=== PATIENT | male | born 1955 | race Caucasian/White ===

== ENCOUNTER 2017-01-26 14:21 | Inpatient (IN) | payer BC, OTHER ==
[~2017-01-26] VITALS: Ht 167.6 cm; Wt 65.5 kg
[2017-01-26] VITALS (7 sets, daily range): BP systolic 163–172; BP diastolic 81–87
--- NOTE | 2017-01-26 17:38 | ED ORDER SUMMARY ---
..... Patient: PEGGY GARZON OrderSheet [facility] VisitID: [id number] [place] [address] 61y, M Registration Date/Time: 01/26/2017 ORDER SHEET Weight: 63.5 kg (stated) Allergies: No Known Drug Allergy GENERAL ORDERS: CBC w Diff Urgent (15:14 01/26/2017 Rere Rangel) (Ack 15:27 Stone) (16:01 KPage-Raúln R.N.) CMP Urgent (15:14 01/26/2017 Rere Rangel) (Ack 15:27 Stone) (16:01 KPage-Raúln R.N.) PT with INR Urgent (15:14 01/26/2017 Rere Rangel) (Ack 15:27 Stone) (16:01 KPage-Raúln R.N.) PTT Urgent (15:14 01/26/2017 Rere Rangel) (Ack 15:27 Stone) (16:01 KPage-Guychan R.N.) Type & Screen Urgent (15:14 01/26/2017 Rere Rangel) (Ack 15:27 Stone) (16:01 KPage-Raúln R.N.) Pulse oximeter (15:14 01/26/2017 Rere Rangel) (Ack 15:27 Stone) (16:01 KPage-Raúln R.N.) CT Abd/Pel w Cont (No) (N/A) Urgent (15:41 01/26/2017 Rere Rangel) (Ack 15:43 Stone) (17:07 Brenda) Vitals - Orthostatic (15:42 01/26/2017 Rere Rangel) (16:50 KPage-Guychan R.N.) Type & Cross (anemia) (transfusion) Urgent (16:51 01/26/2017 Rere Rangel) (Ack 17:32 Stone) (18:22 KPage-Kuchan R.N.) Transfuse PRBCs (2 type and crossed units) (16:51 01/26/2017 Rere Rangel) (Ack 17:32 ORernandez) (18:22 Erich R.N.) MEDICATION ORDERS: IV FLUIDS: IV NS : initial bolus 500 mL (1000 mL/hr), then none - for X1 (NOW) (15:14 01/26/2017 Rere Rangel) (16:01 Erich R.N.) Morphine IV 4 mg (HIGH ALERT MEDICATION, NOW) (15:42 01/26/2017 Rere Rangel) (Ack 16:01 Erich R.N.) (16:14 Erich R.N.) Protonix IVP 80mg 80 mg (Mix in NS 20ml over 4min) (16:57 01/26/2017 Rere Rangel) (17:43 Erich R.N.) Fentanyl IV 75 mcg (HIGH ALERT MEDICATION, NOW) (18:08 01/26/2017 Rere Rangel) (Ack 18:09 KAYLAintergermania R.N.) (18:22 Erich R.N.) ORDER SHEET NOTES: [Electronically signed by Gibson Melendez Dr. (10:08 01/27/2017)] [Electronically signed by Shiv Larose R.N. (18:03 01/28/2017)] [Electronically locked/signed by Shiv Larose R.N. (18:03 01/28/2017)]
--- NOTE | 2017-01-26 17:38 | ED NURSING NOTES ---
Clinical Report - Nurses [facility] [address] [place] [address] 01/26/2017 14:23 Patient: PEGGY GARZON TRIAGE Triage time 14:51 Jan 26 2017. Acuity: LEVEL 3. Chief Complaint: ABDOMINAL PAIN and RECTAL BLEEDING (Pt reports rectal prolapse x 2 months, scheduled for colonoscopy on february 06, pt began having rectal bleeding yesterday, pt currently under tx for stage 4 liver cancer pt of Dr Keturah marques cancer here in [place]). Alert. No acute distress. SEPSIS SCREEN: Sepsis Screen. Negative (no infection suspected/documented). --15:00 Shiv Larose R.N. 14:51 01/26/17. BP: 153/84. HR: 76. RR: 17. O2 saturation: 98%. Temp: 98.1 F. Pain level now: 12/04. --15:00 Shiv Larose R.N. Weight: 63.5 kg stated. Height/Length: 66 inches Per Patient. BMI: 22.6. --14:59 Shiv Larose R.N. Medications Gabapentin Oral (Capsule 300 mg), 3x a day. --14:56 Shiv Larose R.N. OxyCODONE HCl Oral. --14:56 Shiv Larose R.N. Stool Softener Oral. --14:56 Shiv Larose R.N. Medication/allergy information source: the patient and patient's spouse. --15:00 Shiv Larose R.N. Allergies No Known Drug Allergy. --14:56 Shiv Larose R.N. History Arrived by private vehicle. Historian: patient. Accompanied by family. Last oral intake by patient was (1200 today). 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 PAST MEDICAL HX: Immunizations: up-to-date. SOCIAL HX: Smoker- current status unknown (cigarette). History of drug use: marijuana. No alcohol use. No infectious disease exposure. No known contact with a sick individual. ABUSE ASSESSMENT: No report of abuse. SELF HARM ASSESSMENT: A self harm assessment was performed. The patient answered "no" to the question "Do you have thoughts of harming or killing yourself?". FALL RISK ASSESSMENT: Fall risk assessment completed. No fall risk identified. NUTRITIONAL RISK ASSESSMENT: The nutritional risk assessment revealed no deficiencies. FUNCTIONAL ASSESSMENT: Functional assessment: no impairments noted. LEARNING NEEDS ASSESSMENT: The learning needs assessment revealed no barriers. SKIN INTEGRITY ASSESSMENT: Skin integrity risk assessment completed. No skin integrity risk identified. --15:00 Shiv Larose R.N. This started yesterday. --15:00 Shiv Larose R.N. PROBLEMS: Chest Pain. Abdominal Pain. Liver Cancer. --14:58 Shiv Larose R.N. ADDITIONAL SURGERIES: Chemo Port placed R anterior chest wall. Hernia Repair. Pancreatic Cancer removed. Shoulder Repair. Splenectomy. Wipple. --14:58 Shiv Larose R.N. Interventions ID band on patient. To treatment room. --15:00 Shiv Larose R.N. PHYSICAL ASSESSMENT Ambulatory to room. Patient gowned. GENERAL / NEURO / PSYCH: Alert. Oriented X 4. Appears in no acute distress. RESPIRATORY: Respirations not labored. Breath sounds within normal limits. GI / : Abdomen soft and nontender. Bowel sounds within normal limits. SKIN: Skin is warm and dry. --15:02 Shiv Larose R.N. NURSING PROGRESS NOTES Pulse oximeter and NIBP monitor placed on patient; relocation specialist- Lead II and V5; monitor alarms on. Patient gowned. Head of bed elevated. Patient identifiers checked. Call light placed in reach. Side rails up x 1. Bed placed in lowest position. Brakes of bed on. Patient waiting for evaluation. --15:03 Shiv Larose R.N. 15:51 01/26/2017 Site #1 started via IV in the right with an 20g angiocath, with aseptic technique and good blood return. Blood drawn: rainbow set. Labeled in the presence of the patient and sent to the lab. Saline lock flushed with 10 mL saline (power port right upper chest). --16:01 Shiv Larose R.N. 16:01 01/26/2017 Started bag #1 1000 mL IV Fluids IV NS (Saline); bolus of 500 mL then at 999 mL/hr via site #1 via IV pump. Allergies verified and confirmed 5 rights. IV patency established. IV site checked: no pain, redness, or swelling. IV flushed thoroughly pre- and post-medication administration. --16:01 Shiv Larose R.N. 16:09 01/26/2017 Morphine IVP 4 mg given. via site #1. Allergies verified, confirmed 5 rights and sedative warning given to the patient. IV patency established. IV site checked: no pain, redness, or swelling. IV flushed thoroughly pre- and post-medication administration. IVP given by RN. --16:14 Shiv Larose R.N. Reassessment after medication administered. He is calm and resting quietly and has had no adverse reaction. ( ivf infusing on pump as ordered, morphine given for pain pt reports improvement in symptoms, waiting lab results-). --16:24 Shiv Larose R.N. 16:23 01/26/17. BP: 150/76. --16:24 Shiv Larose R.N. Critical value relayed to ED by aguila harley. Critical value received by Shiv GIBBONS. Hgb: 5.7. Hct: 17. Critical value read back. Verified lab result. Patient ID band checked for patient name and birthdate. ED physician and charge nurse notifed of critical value (Dr Melendez). --16:36 Shiv Larose R.N. Patient transported to radiology and CT by stretcher with tech. --16:49 Shiv Larose R.N. 17:18 01/26/2017 PROTONIX (Pantoprazole Sodium) IVP 80 mg given. via site #1. Allergies verified and confirmed 5 rights. IV patency established. IV site checked: no pain, redness, or swelling. IV flushed thoroughly pre- and post-medication administration. IVP given by RN. --17:43 Shiv Larose R.N. 18:17 01/26/2017 Fentanyl IVP 75 mcg given. via site #1. Allergies verified, confirmed 5 rights and sedative warning given to the patient and patient's family. IV patency established. IV site checked: no pain, redness, or swelling. IV flushed thoroughly pre- and post-medication administration. IVP given by RN. --18:22 Shiv Larose R.N. 17:50. BLOOD PRODUCT STARTED: consent signed, ID band checked and blood product verified to order and patient's blood band by 2 staff members. #1 PRBC via IV pump (75 mL/hr for 15 minutes). See transfusion record. --18:33 Shiv Larose R.N. DISPOSITION / DISCHARGE Admitted to the Critical Care Unit (18:31 Jan 26 2017). Transported via stretcher by nurse with monitor and IV. Report was given to a nurse via a phone call. Report included patient's care, treatment, medications, reviewed medication reconcilliation, and condition (including any recent changes or anticipated changes). All questions were answered. Report was acknowledged and care was transferred. (Cassi GIBBONS). Patient's personal items include, given to spouse. --18:32 Shiv Larose R.N. 18:30 01/26/17. BP: 176/81. HR: 65. RR: 15. O2 saturation: 96%. Temp: 98 F. Pain level now: 12/04. --18:32 Shiv Larose R.N. Departure time: 1842. --18:39 Shiv Larose R.N. Locked/Released at 01/28/2017 18:03 by Shiv Larose R.N.
--- NOTE | 2017-01-26 17:38 | ED ORDER SUMMARY ---
..... Patient: PEGGY GARZON OrderSheet [facility] VisitID: [id number] [place] [address] 61y, M Registration Date/Time: 01/26/2017 ORDER SHEET Weight: 63.5 kg (stated) Allergies: No Known Drug Allergy GENERAL ORDERS: CBC w Diff Urgent (15:14 01/26/2017 Rere Rangel) (Ack 15:27 Stone) (16:01 KPage-Raúln R.N.) CMP Urgent (15:14 01/26/2017 Rere Rangel) (Ack 15:27 Stone) (16:01 KPage-Raúln R.N.) PT with INR Urgent (15:14 01/26/2017 Rere Rangel) (Ack 15:27 Stone) (16:01 KPage-Raúln R.N.) PTT Urgent (15:14 01/26/2017 Rere Rangel) (Ack 15:27 Stone) (16:01 KPage-Guychan R.N.) Type & Screen Urgent (15:14 01/26/2017 Rere Rangel) (Ack 15:27 Stone) (16:01 KPage-Raúln R.N.) Pulse oximeter (15:14 01/26/2017 Rere Rangel) (Ack 15:27 Stone) (16:01 KPage-Raúln R.N.) CT Abd/Pel w Cont (No) (N/A) Urgent (15:41 01/26/2017 Rere Rangel) (Ack 15:43 Stone) (17:07 Brenda) Vitals - Orthostatic (15:42 01/26/2017 Rere Rangel) (16:50 KPage-Guychan R.N.) Type & Cross (anemia) (transfusion) Urgent (16:51 01/26/2017 Rere Rangel) (Ack 17:32 Stone) (18:22 KPage-Kuchan R.N.) Transfuse PRBCs (2 type and crossed units) (16:51 01/26/2017 Rere Rangel) (Ack 17:32 AKernandez) (18:22 Erich R.N.) MEDICATION ORDERS: IV FLUIDS: IV NS : initial bolus 500 mL (1000 mL/hr), then none - for X1 (NOW) (15:14 01/26/2017 Rere Rangel) (16:01 Erich R.N.) Morphine IV 4 mg (HIGH ALERT MEDICATION, NOW) (15:42 01/26/2017 Rere Rangel) (Ack 16:01 Erich R.N.) (16:14 Erich R.N.) Protonix IVP 80mg 80 mg (Mix in NS 20ml over 4min) (16:57 01/26/2017 Rere Rangel) (17:43 Erich R.N.) Fentanyl IV 75 mcg (HIGH ALERT MEDICATION, NOW) (18:08 01/26/2017 Rere Rangel) (Ack 18:09 KAYLAintergermania R.N.) (18:22 Erich R.N.) ORDER SHEET NOTES: [Electronically signed by Gibson Melendez Dr. (10:08 01/27/2017)] [Electronically signed by Shiv Larose R.N. (18:03 01/28/2017)] [Electronically locked/signed by Shiv Larose R.N. (18:03 01/28/2017)]
--- NOTE | 2017-01-26 17:38 | ED CLINICAL REPORT ---
Clinical Report - Physicians/Mid Levels [facility] [address] [place] [address] 01/26/2017 14:23 Patient: PEGGY GARZON Time Seen: 1514; initial patient contact. Arrived- By private vehicle. Historian- patient. HISTORY OF PRESENT ILLNESS Chief Complaint: RECTAL BLEEDING. This started today, has been severe and is still present. It was abrupt in onset and has been constant but is not gone now. The patient has had rectal bleeding. Similar symptoms previously: Recent medical care: Not recently seen/assessed. REVIEW OF SYSTEMS The patient has had weakness, and he has had dizziness. No fainting episodes, fever, difficulty breathing or chest pain. All systems otherwise negative, except as recorded above. PAST HISTORY See nurses notes. Medications: Stool Softener Oral. OxyCODONE HCl Oral. Gabapentin Oral (Capsule 300 mg), 3x a day. Allergies: No Known Drug Allergy. SOCIAL HISTORY Never smoker. History of occasional drug use: marijuana. No alcohol use. No recent travel. Is a local resident. ADDITIONAL NOTES The nursing notes have been reviewed. PHYSICAL EXAM Vital Signs: 01/26/2017 14:51 BP: 153/84. HR: 76. RR: 17. O2 saturation: 98%. Temp: 98.1 F. Pain level now: 5/10. Hypertensive. Oxygen saturation normal. Appearance: Alert. Oriented X3. No acute distress. Eyes: Pupils equal, round and reactive to light. Pale conjunctivae. Eyes normal inspection. No scleral icterus. ENT: Ears normal. Nose normal. Pharynx normal. Neck: Normal inspection. Neck supple. CVS: Normal heart rate and rhythm. Heart sounds normal. Pulses normal. Respiratory: No respiratory distress. Breath sounds normal. No rales, rhonchi or wheezes. Abdomen: Soft and nontender. Bowel sounds normal. No mass. Rectal: Inflamed external hemorrhoids. No bleeding external hemorrhoids. Strongly heme-positive stool; hemoccult air quality engineer check passed. (POC test reference range: negative). Stool not melenic. Skin: Skin warm and dry. Normal skin color. No rash. Normal skin turgor. Extremities: Extremities exhibit normal ROM. No lower extremity edema. Neuro: Oriented X 3. No motor deficit. No sensory deficit. LABS, X-RAYS, AND EKG Laboratory Tests: CBC w Diff: (MARKY: 01/26/2017 15:56) ( [facility] 01/26/2017 16:38) IP Test Result Flag Units (Reference) WHITE BLOOD COUNT 9.1 K/uL (4.5-11.5) RED BLOOD COUNT 1.95 L M/uL (4.50-5.90) HEMOGLOBIN 5.7 *L gm/dL (13.5-17.5) CRITICAL RESULTS CALLEDCalled to GE R.N. 01/26/17 1636Were 2 patient identifiers used? YWas the result read back? Y HEMATOCRIT 17.0 *L % (41.0-53.0) CRITICAL RESULTS CALLEDCalled to GE R.N. 01/26/17 1636Were 2 patient identifiers used? YWas the result read back? Y MEAN CELL VOLUME 87 fL (80-100) MEAN CORPUSCULAR HGB 29 pg (26-34) MEAN CORPUSCULAR HGB CONC 34 g/dL (31-37) RED CELL DISTRIBUTION WIDTH 23.5 H % (11.6-14.8) PLATELET COUNT 348 K/uL (150-400) PT with INR: (MARKY: 01/26/2017 15:56) ( [facility] 01/26/2017 16:26) Final results Test Result Flag Units (Reference) INR 1.2 (0.8-1.2) Low Intensity Therapy: INR 1.5-2.0 PT range 18.5-23.1Mod.Intensity Therapy: INR 2.0-3.0 PT range 23.1-31.5High Intensity Therapy: INR 2.5-3.5 PT range 27.4-35.5High Intensity Therapy 2: INR 3.0-4.0 PT range 31.5-39.3 APTT 39 H SECONDS (24-34) CMP: (MARKY: 01/26/2017 15:56) ( [facility] 01/26/2017 16:38) Final results Test Result Flag Units (Reference) GLUCOSE 164 H mg/dL (70-110) BUN 16 mg/dL (7-18) CREATININE 1.0 mg/dL (0.6-1.3) Estimated GFR >60 mL/min Estimated GFR- >60 mL/min Note: Persistent reduction over 3 months in eGFR<60 mL/min/1.73 m2 defines CKD. Patients with eGFR values>=60 mL/min/1.73 m2 may also have CKD if evidence ofpersistent proteinuria. Additional information may be foundat www.kidney.org. SODIUM 139 mmol/L (136-145) POTASSIUM 4.1 mmol/L (3.5-5.1) CHLORIDE 107 mmol/L (98-107) CARBON DIOXIDE 24 mmol/L (21-32) CALCIUM 8.1 L mg/dL (8.5-10.1) TOTAL PROTEIN 5.4 L g/dL (6.4-8.2) ALBUMIN 2.6 L g/dL (3.3-5.0) BILIRUBIN, TOTAL 0.6 mg/dL (0.0-1.0) ALKALINE PHOSPHATASE 235 H U/L (46-116) AST (SGOT) 35 U/L (15-37) ALT (SGPT) 30 U/L (12-78) . PROGRESS AND PROCEDURES Course of Care: patient with reported GI bleed. Patient with concern for anemia. Labs ordered. Patient with + heme stool. patient agreeable to treatment and plan. patient with significantly low h/h. informed written consent obtained for transfusion. Discussed case with Dr. Jarquin and oncall hospitalist. patient given protonix and admitted to the ICU. patient with significant blood loss and would need ICU level of care. patient typed and crossed for 2 units. Patient with good BP, HR, and mentation prior to moving upstairs. Discussed with patient his work up in the ED including diagnosis and plan of care. All questions answered. patient expressed understanding and was agreeable. Critical care performed (40 minutes). Time is exclusive of separately billable procedures. Time includes: direct patient care, patient reassessment, coordination of patient care, review of patient's medical records, medical consultation and documentation of patient care. Consult obtained from surgery. Disposition: Admitted to the Critical Care Unit. CLINICAL IMPRESSION Occult and major GI bleed (acute). Severe acute anemia associated with acute blood loss. (Electronically signed by Gibson Melendez Dr. 01/27/2017 10:08)
--- NOTE | 2017-01-26 17:38 | ED NURSING NOTES ---
Clinical Report - Nurses [facility] [address] [place] [address] 01/26/2017 14:23 Patient: PEGGY GARZON TRIAGE Triage time 14:51 Jan 26 2017. Acuity: LEVEL 3. Chief Complaint: ABDOMINAL PAIN and RECTAL BLEEDING (Pt reports rectal prolapse x 2 months, scheduled for colonoscopy on february 06, pt began having rectal bleeding yesterday, pt currently under tx for stage 4 liver cancer pt of Dr Keturah marques cancer here in [place]). Alert. No acute distress. SEPSIS SCREEN: Sepsis Screen. Negative (no infection suspected/documented). --15:00 Shiv Larose R.N. 14:51 01/26/17. BP: 153/84. HR: 76. RR: 17. O2 saturation: 98%. Temp: 98.1 F. Pain level now: 12/04. --15:00 Shiv Larose R.N. Weight: 63.5 kg stated. Height/Length: 66 inches Per Patient. BMI: 22.6. --14:59 Shiv Larose R.N. Medications Gabapentin Oral (Capsule 300 mg), 3x a day. --14:56 Shiv Larose R.N. OxyCODONE HCl Oral. --14:56 Shiv Larose R.N. Stool Softener Oral. --14:56 Shiv Larose R.N. Medication/allergy information source: the patient and patient's spouse. --15:00 Shiv Larose R.N. Allergies No Known Drug Allergy. --14:56 Shiv Larose R.N. History Arrived by private vehicle. Historian: patient. Accompanied by family. Last oral intake by patient was (1200 today). 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 PAST MEDICAL HX: Immunizations: up-to-date. SOCIAL HX: Smoker- current status unknown (cigarette). History of drug use: marijuana. No alcohol use. No infectious disease exposure. No known contact with a sick individual. ABUSE ASSESSMENT: No report of abuse. SELF HARM ASSESSMENT: A self harm assessment was performed. The patient answered "no" to the question "Do you have thoughts of harming or killing yourself?". FALL RISK ASSESSMENT: Fall risk assessment completed. No fall risk identified. NUTRITIONAL RISK ASSESSMENT: The nutritional risk assessment revealed no deficiencies. FUNCTIONAL ASSESSMENT: Functional assessment: no impairments noted. LEARNING NEEDS ASSESSMENT: The learning needs assessment revealed no barriers. SKIN INTEGRITY ASSESSMENT: Skin integrity risk assessment completed. No skin integrity risk identified. --15:00 Shiv Larose R.N. This started yesterday. --15:00 Shiv Larose R.N. PROBLEMS: Chest Pain. Abdominal Pain. Liver Cancer. --14:58 Shiv Larose R.N. ADDITIONAL SURGERIES: Chemo Port placed R anterior chest wall. Hernia Repair. Pancreatic Cancer removed. Shoulder Repair. Splenectomy. Wipple. --14:58 Shiv Larose R.N. Interventions ID band on patient. To treatment room. --15:00 Shiv Larose R.N. PHYSICAL ASSESSMENT Ambulatory to room. Patient gowned. GENERAL / NEURO / PSYCH: Alert. Oriented X 4. Appears in no acute distress. RESPIRATORY: Respirations not labored. Breath sounds within normal limits. GI / : Abdomen soft and nontender. Bowel sounds within normal limits. SKIN: Skin is warm and dry. --15:02 Shiv Larose R.N. NURSING PROGRESS NOTES Pulse oximeter and NIBP monitor placed on patient; lunchroom monitor- Lead II and V5; monitor alarms on. Patient gowned. Head of bed elevated. Patient identifiers checked. Call light placed in reach. Side rails up x 1. Bed placed in lowest position. Brakes of bed on. Patient waiting for evaluation. --15:03 Shiv Larose R.N. 15:51 01/26/2017 Site #1 started via IV in the right with an 20g angiocath, with aseptic technique and good blood return. Blood drawn: rainbow set. Labeled in the presence of the patient and sent to the lab. Saline lock flushed with 10 mL saline (power port right upper chest). --16:01 Shiv Larose R.N. 16:01 01/26/2017 Started bag #1 1000 mL IV Fluids IV NS (Saline); bolus of 500 mL then at 999 mL/hr via site #1 via IV pump. Allergies verified and confirmed 5 rights. IV patency established. IV site checked: no pain, redness, or swelling. IV flushed thoroughly pre- and post-medication administration. --16:01 Shiv Larose R.N. 16:09 01/26/2017 Morphine IVP 4 mg given. via site #1. Allergies verified, confirmed 5 rights and sedative warning given to the patient. IV patency established. IV site checked: no pain, redness, or swelling. IV flushed thoroughly pre- and post-medication administration. IVP given by RN. --16:14 Shiv Larose R.N. Reassessment after medication administered. He is calm and resting quietly and has had no adverse reaction. ( ivf infusing on pump as ordered, morphine given for pain pt reports improvement in symptoms, waiting lab results-). --16:24 Shiv Larose R.N. 16:23 01/26/17. BP: 150/76. --16:24 Shiv Larose R.N. Critical value relayed to ED by aguila harley. Critical value received by Shiv GIBBONS. Hgb: 5.7. Hct: 17. Critical value read back. Verified lab result. Patient ID band checked for patient name and birthdate. ED physician and charge nurse notifed of critical value (Dr Melendez). --16:36 Shiv Larose R.N. Patient transported to radiology and CT by stretcher with tech. --16:49 Shiv Larose R.N. 17:18 01/26/2017 PROTONIX (Pantoprazole Sodium) IVP 80 mg given. via site #1. Allergies verified and confirmed 5 rights. IV patency established. IV site checked: no pain, redness, or swelling. IV flushed thoroughly pre- and post-medication administration. IVP given by RN. --17:43 Shiv Larose R.N. 18:17 01/26/2017 Fentanyl IVP 75 mcg given. via site #1. Allergies verified, confirmed 5 rights and sedative warning given to the patient and patient's family. IV patency established. IV site checked: no pain, redness, or swelling. IV flushed thoroughly pre- and post-medication administration. IVP given by RN. --18:22 Shiv Larose R.N. 17:50. BLOOD PRODUCT STARTED: consent signed, ID band checked and blood product verified to order and patient's blood band by 2 staff members. #1 PRBC via IV pump (75 mL/hr for 15 minutes). See transfusion record. --18:33 Shiv Larose R.N. DISPOSITION / DISCHARGE Admitted to the Critical Care Unit (18:31 Jan 26 2017). Transported via stretcher by nurse with monitor and IV. Report was given to a nurse via a phone call. Report included patient's care, treatment, medications, reviewed medication reconcilliation, and condition (including any recent changes or anticipated changes). All questions were answered. Report was acknowledged and care was transferred. (Cassi GIBBONS). Patient's personal items include, given to spouse. --18:32 Shiv Larose R.N. 18:30 01/26/17. BP: 176/81. HR: 65. RR: 15. O2 saturation: 96%. Temp: 98 F. Pain level now: 12/04. --18:32 Shiv Larose R.N. Departure time: 1842. --18:39 Shiv Larose R.N. Locked/Released at 01/28/2017 18:03 by Shiv Larose R.N.
--- NOTE | 2017-01-26 17:38 | ED CLINICAL REPORT ---
Clinical Report - Physicians/Mid Levels [facility] [address] [place] [address] 01/26/2017 14:23 Patient: PEGGY GARZON Time Seen: 1514; initial patient contact. Arrived- By private vehicle. Historian- patient. HISTORY OF PRESENT ILLNESS Chief Complaint: RECTAL BLEEDING. This started today, has been severe and is still present. It was abrupt in onset and has been constant but is not gone now. The patient has had rectal bleeding. Similar symptoms previously: Recent medical care: Not recently seen/assessed. REVIEW OF SYSTEMS The patient has had weakness, and he has had dizziness. No fainting episodes, fever, difficulty breathing or chest pain. All systems otherwise negative, except as recorded above. PAST HISTORY See nurses notes. Medications: Stool Softener Oral. OxyCODONE HCl Oral. Gabapentin Oral (Capsule 300 mg), 3x a day. Allergies: No Known Drug Allergy. SOCIAL HISTORY Never smoker. History of occasional drug use: marijuana. No alcohol use. No recent travel. Is a local resident. ADDITIONAL NOTES The nursing notes have been reviewed. PHYSICAL EXAM Vital Signs: 01/26/2017 14:51 BP: 153/84. HR: 76. RR: 17. O2 saturation: 98%. Temp: 98.1 F. Pain level now: 5/10. Hypertensive. Oxygen saturation normal. Appearance: Alert. Oriented X3. No acute distress. Eyes: Pupils equal, round and reactive to light. Pale conjunctivae. Eyes normal inspection. No scleral icterus. ENT: Ears normal. Nose normal. Pharynx normal. Neck: Normal inspection. Neck supple. CVS: Normal heart rate and rhythm. Heart sounds normal. Pulses normal. Respiratory: No respiratory distress. Breath sounds normal. No rales, rhonchi or wheezes. Abdomen: Soft and nontender. Bowel sounds normal. No mass. Rectal: Inflamed external hemorrhoids. No bleeding external hemorrhoids. 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 (POC test reference range: negative). Stool not melenic. Skin: Skin warm and dry. Normal skin color. No rash. Normal skin turgor. Extremities: Extremities exhibit normal ROM. No lower extremity edema. Neuro: Oriented X 3. No motor deficit. No sensory deficit. LABS, X-RAYS, AND EKG Laboratory Tests: CBC w Diff: (MARKY: 01/26/2017 15:56) ( [facility] 01/26/2017 16:38) IP Test Result Flag Units (Reference) WHITE BLOOD COUNT 9.1 K/uL (4.5-11.5) RED BLOOD COUNT 1.95 L M/uL (4.50-5.90) HEMOGLOBIN 5.7 *L gm/dL (13.5-17.5) CRITICAL RESULTS CALLEDCalled to GE R.N. 01/26/17 1636Were 2 patient identifiers used? YWas the result read back? Y HEMATOCRIT 17.0 *L % (41.0-53.0) CRITICAL RESULTS CALLEDCalled to GE R.N. 01/26/17 1636Were 2 patient identifiers used? YWas the result read back? Y MEAN CELL VOLUME 87 fL (80-100) MEAN CORPUSCULAR HGB 29 pg (26-34) MEAN CORPUSCULAR HGB CONC 34 g/dL (31-37) RED CELL DISTRIBUTION WIDTH 23.5 H % (11.6-14.8) PLATELET COUNT 348 K/uL (150-400) PT with INR: (MARKY: 01/26/2017 15:56) ( [facility] 01/26/2017 16:26) Final results Test Result Flag Units (Reference) INR 1.2 (0.8-1.2) Low Intensity Therapy: INR 1.5-2.0 PT range 18.5-23.1Mod.Intensity Therapy: INR 2.0-3.0 PT range 23.1-31.5High Intensity Therapy: INR 2.5-3.5 PT range 27.4-35.5High Intensity Therapy 2: INR 3.0-4.0 PT range 31.5-39.3 APTT 39 H SECONDS (24-34) CMP: (MARKY: 01/26/2017 15:56) ( [facility] 01/26/2017 16:38) Final results Test Result Flag Units (Reference) GLUCOSE 164 H mg/dL (70-110) BUN 16 mg/dL (7-18) CREATININE 1.0 mg/dL (0.6-1.3) Estimated GFR >60 mL/min Estimated GFR- >60 mL/min Note: Persistent reduction over 3 months in eGFR<60 mL/min/1.73 m2 defines CKD. Patients with eGFR values>=60 mL/min/1.73 m2 may also have CKD if evidence ofpersistent proteinuria. Additional information may be foundat [email or web address]. SODIUM 139 mmol/L (136-145) POTASSIUM 4.1 mmol/L (3.5-5.1) CHLORIDE 107 mmol/L (98-107) CARBON DIOXIDE 24 mmol/L (21-32) CALCIUM 8.1 L mg/dL (8.5-10.1) TOTAL PROTEIN 5.4 L g/dL (6.4-8.2) ALBUMIN 2.6 L g/dL (3.3-5.0) BILIRUBIN, TOTAL 0.6 mg/dL (0.0-1.0) ALKALINE PHOSPHATASE 235 H U/L (46-116) AST (SGOT) 35 U/L (15-37) ALT (SGPT) 30 U/L (12-78) . PROGRESS AND PROCEDURES Course of Care: patient with reported GI bleed. Patient with concern for anemia. Labs ordered. Patient with + heme stool. patient agreeable to treatment and plan. patient with significantly low h/h. informed written consent obtained for transfusion. Discussed case with Dr. Jarquin and oncall hospitalist. patient given protonix and admitted to the ICU. patient with significant blood loss and would need ICU level of care. patient typed and crossed for 2 units. Patient with good BP, HR, and mentation prior to moving upstairs. Discussed with patient his work up in the ED including diagnosis and plan of care. All questions answered. patient expressed understanding and was agreeable. Critical care performed (40 minutes). Time is exclusive of separately billable procedures. Time includes: direct patient care, patient reassessment, coordination of patient care, review of patient's medical records, medical consultation and documentation of patient care. Consult obtained from surgery. Disposition: Admitted to the Critical Care Unit. CLINICAL IMPRESSION Occult and major GI bleed (acute). Severe acute anemia associated with acute blood loss. (Electronically signed by Gibson Melendez Dr. 01/27/2017 10:08)
--- NOTE | 2017-01-26 17:50 | DIAGNOSTIC IMAGING REPORT ---
PROCEDURE: CT ABD/PELVIS WITH CONTRAST CLINICAL INDICATION: ABDOMINAL PAIN RLQ TECHNIQUE: 125 ml of Isovue 300 were injected intravenously and axial images were obtained of the entire abdomen and pelvis with sagittal and coronal reformations. COMPARISON: CT abdomen/pelvis 03/24/2016. FINDINGS: ABDOMEN: Bibasilar dependent atelectasis. Normal heart size. Distal pancreatectomy and splenectomy. Heterogeneous tissue in the region of the head of pancreas has decreased in size. There is a 1.3 cm cyst (previously 1.8 cm) in the region of the pancreas. There is slight progression of the heterogeneous liver masses. There is periportal edema. New moderate to large ascites. Cholecystectomy. Stable mild thickening of the left adrenal gland. Right adrenal gland and kidneys are normal. Moderate atherosclerosis. Surgical changes at the GE junction. There is some thickening of the small bowel which may be secondary to the ascites. PELVIS: Nonvisualization of the appendix. Dystrophic prostate calcifications. Normal bladder. Moderate to large ascites. Mild degenerative changes of the spine. IMPRESSION: 1. Ill-defined soft tissue in the region of the head of the pancreas has decreased in size but interval slight progression of the hepatic metastases and new moderate to large ascites 2. Decreasing 1.3 cm fluid collection in the region of the head of the pancreas, pseudocyst versus postoperative changes 3. Distal pancreatectomy, splenectomy, cholecystectomy and GE junction surgical changes 4. Results discussed with Dr. Melendez All CT scans at this facility use dose modulation, iterative reconstruction, and/or weight-based dosing when appropriate to reduce radiation dose to as low as reasonably achievable.
--- NOTE | 2017-01-26 18:39 | History & Physical Report ---
History Chief Complaint Rectal bleed History of Present Illness 61-year-old white male who was having rectal bleeding for last 2 months on and off and was scheduled to have a colonoscopy this coming week. Patient progressively became weak and dizzy and started 2 days ago so came to emergency room for further evaluation. The patient describes bleeding as a fresh red blood mixed with the stool and moderate MR on and off no nausea no vomiting. The patient also complains of abdominal pains started today Patient History 1. DM (diabetes mellitus) 2. HTN (hypertension) 3. Liver cancer 4. Hypothyroid 5. Pancreas cancer 6. Post-splenectomy 7. H/O hernia repair Social History Patient is , has no kids, lives with his . Smoking: Half pack a day for 1 year, alcohol: None, illicit drugs: None. Family History Relation not specified for: Diabetes Heart Disease Hypertension Medications and Allergies Medications Home medications: Gabapentin 300 mg 3 times a day, oxycodone dosage is not known Current Medications Sig/Sallie Start time Last Medication Dose Route Stop Time Status Admin Pantoprazole Sodium 40 MG DAILY@0600 01/27 0600 UNV IV Gabapentin 300 MG TID 01/26 2200 UNV PO Insulin Human Lispro See Dose ACHS 01/26 2100 UNi Insts (1) SC Dextrose/Sodium 1,000 ML ASDIRECTED 01/26 1800 UNV Chloride IV Hydromorphone HCl 1 MG Q6H PRN 01/26 1800 UNV IV Ondansetron HCl 4 MG Q6H PRN / 1800 UNV IV Dose Instructions: (1)Insulin Human Lispro: MEDIUM DOSE SLIDING SCALE Allergies Coded Allergies: NKA (01/17/17) Review of Systems Other No recent weight changes, no difficulty with vision or hearing, no runny nose or congestion or sore throat cough, no chest pain or shortness of breath or palpitations, no dysuria frequency or incontinence, no arthralgia or myalgia, complains of headache and dizziness also tingling and numbness due to neuropathy no localized weaknesssyncope. Physical Exam General Appearance Alert, Oriented X3, No acute distress HEENT Normal exam Lungs Clear to auscultation Neck Supple, No thyromegaly, 2+ carotid pulse wo bruit Cardiovascular Regular rate and rhythm, Normal S1 and S2, No murmurs, gallops, rubs Abdomen Normal bowel sounds (tenderness in preumbilical are), Soft Extremities No cyanosis, No edema, Normal pulses, No tenderness Skin No Rashes, No Significant Lesions Neurological Normal speech, Reflexes 2+ and equal, Cranial nerves intact, Strength 5/5 x4 ext's Psych/Mental Status Mental status normal, Confused Assessment and Plan Problem List 1. GI bleed Plan Patient will be nothing by mouth we will do IV hydration and monitor hemoglobin and hematocrit surgical consult is already done and blood transfusion started in emergency also IV Protonix 2. Anemia due to blood loss, acute Plan Continue blood transfusion started in the emergency monitor hemoglobin and hematocrit 3. DM (diabetes mellitus) Plan Monitor blood sugar patient will be on insulin sliding scale 4. HTN (hypertension) Plan Controlled 5. Hypothyroid
[2017-01-27] VITALS (20 sets, daily range): BP systolic 127–178; BP diastolic 53–89
--- NOTE | 2017-01-27 07:52 | Progress Note ---
Subjective General Note Date: January 27, 2017 Admission Date: January 26, 2017 Hospital Day: 2 PCP: Derik Ryan D.O. Status: Observation Advanced Directive: FULL CODE Room: 301 Admission History: The patient is a 61-year-old white male with a significant past medical history of rectal bleeding, diabetes mellitus, hypertension, hypothyroidism, pancreatic/ hepatic neoplasm presented to [facility] emergency department secondary to complaints of rectal bleeding. [facility] ER evaluation was consistent with rectal bleeding and anemia. Secondary to the above, the patient was admitted by Darius Navarro M.D. with surgical consultation by Maurice Jackson M.D. for further evaluation and treatment For other history present illness, past medical history, family history, social history, review of systems, and admission physical examination please see the patient's history and physical examination and ER visit note in the patient's medical record. Subjective: The patient states she is doing much better status post transfusion. Weakness improved. Up ambulating. Patient requests: None Medications and Allergies Medications Current Medications Sig/Slalie Start time Last Medication Dose Route Stop Time Status Admin Pantoprazole Sodium 40 MG DAILY@0600 01/27 0600 AC 01/27 IV 0605 Furosemide 40 MG ONCE 01/27 0115 AC 01/27 IV 01/27 2359 0126 Hydromorphone HCl 1 MG Q4H PRN 01/27 0115 AC 01/27 IV 0126 Gabapentin 300 MG TID 01/26 2200 AC 01/27 PO 0606 Insulin Human Lispro See Dose ACHS 01/26 2100 AC Insts (1) SC Metoprolol Tartrate 5 MG Q6HR PRN 01/26 2000 AC 01/26 IV 2040 Dextrose/Sodium 1,000 ML ASDIRECTED 01/26 1800 AC Chloride IV Ondansetron HCl 4 MG Q6H PRN 01/26 1800 AC IV Dose Instructions: (1)Insulin Human Lispro: MEDIUM DOSE SLIDING SCALE Allergies Coded Allergies: NKA (01/27/17) Reconcile Medications Scheduled Medications Ferrous Sulfate (Ferrous Sulfate 325 MG) 325 MG TAB 325 MG PO BID Gabapentin 300 MG CAP 300 MG PO TID (Reported) Multiple Vitamin TAB 1 TAB PO DAILY Polyethylene Glycol (Miralax Equivalent) 17 GM POW 17 GM PO DAILY (Reported) Scheduled PRN Medications Oxycodone HCl (Oxaydo) 5 MG TAB 10 MG PO Q6H PRN PAIN (Reported) Physical Exam Vital Signs / I&Os Vital Signs Date Time Temp Pulse Resp B/P Pulse O2 O2 Flow FiO2 Ox Delivery Rate 01/27 0736 2.0 07/ 0657 97.9 57 19 165/79 95 Nasal 2.0 Cannula 07/03 0602 98.1 66 20 160/80 96 Nasal 2.0 Cannula 07/03 0558 98.1 63 142/78 97 Nasal 2.0 Cannula 07/03 0505 58 146/71 99 Nasal 2.0 Cannula 07/03 0457 59 20 147/77 92 Nasal 2.0 Cannula 07/03 0443 98.1 62 24 146/66 97 Nasal 2.0 Cannula 07/03 0358 64 20 154/80 97 Nasal 2.0 Cannula 07/03 0300 64 14 141/75 97 Nasal 2.0 Cannula 07/03 0200 62 14 127/53 96 Nasal 2.0 Cannula 07/03 0152 98.1 67 16 137/62 95 Nasal 2.0 Cannula 07/03 0109 63 16 142/61 95 Nasal 2.0 Cannula 07/03 0018 98.1 63 19 162/82 92 Nasal 2.0 Cannula 07/03 0009 58 17 178/89 95 Nasal 2.0 Cannula 07/02 2303 98.1 63 16 166/86 96 Nasal 2.0 Cannula 07/02 2228 59 16 172/85 95 Nasal 2.0 Cannula 07/02 2141 98.4 62 17 166/84 97 Nasal 2.0 Cannula 07/02 2126 98.4 74 15 171/84 99 Nasal 2.0 Cannula 07/02 2107 98.8 63 19 163/81 95 07/ 2000 98.8 67 19 170/87 93 07/02 1926 99.0 66 19 171/87 94 Room Air I&O 01/27 0000 01/26 1600 01/26 0800 Intake Total 465 Output Total 850 Balance -385 General Appearance Alert, Oriented X3, Cooperative, No acute distress Lungs Clear to auscultation Cardiovascular Regular rate and rhythm, Normal S1 and S2 Abdomen Normal bowel sounds, Soft, No tenderness Extremities No cyanosis, No clubbing Neurological Cranial nerves intact, No lateralizing signs Psych/Mental Status Mental status normal, Mood normal LAB Results Laboratory Tests 01/27 01/26 0745 1556 Chemistry Plasma Sodium (136 - 145 mmol/L) Pending 139 Plasma Potassium (3.5 - 5.1 mmol/L) Pending 4.1 Plasma Chloride (98 - 107 mmol/L) Pending 107 CO2 (Enzymatic) (21 - 32 mmol/L) Pending 24 BUN (7 - 18 mg/dL) Pending 16 Creatinine (0.6 - 1.3 mg/dL) Pending 1.0 Est GFR ( Amer) (mL/min) Pending >60 Est GFR (Non-Af Amer) (mL/min) Pending >60 Glucose (70 - 110 mg/dL) Pending 164 Plasma Calcium (8.5 - 10.1 mg/dL) Pending 8.1 Total Bilirubin (0.0 - 1.0 mg/dL) 0.6 AST (15 - 37 U/L) 35 ALT (12 - 78 U/L) 30 Alkaline Phosphatase (46 - 116 U/L) 235 Total Protein (6.4 - 8.2 g/dL) 5.4 Albumin (3.3 - 5.0 g/dL) 2.6 Coagulation INR (0.8 - 1.2) 1.2 APTT (24 - 34 SECONDS) 39 Hematology WBC (4.5 - 11.5 K/uL) Pending 9.1 Corrected WBC (auto) (K/uL) 8.8 RBC (4.50 - 5.90 M/uL) Pending 1.95 Hgb (13.5 - 17.5 gm/dL) Pending 5.7 Hct (41.0 - 53.0 %) Pending 17.0 MCV (80 - 100 fL) Pending 87 MCH (26 - 34 pg) Pending 29 RDW (11.6 - 14.8 %) Pending 23.5 Neut % (Auto) (50 - 75 %) 51 Lymph % (Auto) (25 - 40 %) 14 [place] % (Auto) (3 - 14 %) 24 Eos % (Auto) (0 - 4 %) 8 Baso % (Auto) (0 - 2 %) 0 Band Neutrophils % (0 - 8 %) 3 Metamyelocytes % (0 - 1 %) 0 Myelocytes (0 - 1 %) 0 Nucleated RBCs (0 - 1) 3 Other Cell Type OCCASIONAL GIANT PLT Plt Count, EDTA (150 - 400 K/uL) Pending 348 Poikilocytosis (manual 2+ Anisocytosis (manual) 2+ [place] Cells 2+ Schistocytes 2+ PUBS MCHC (31 - 37 g/dL) Pending 34 Microbiology Date/Time Procedure - Status Source Growth 01/26 1900 MRSA Screen - RECD NOSE Assessment and Plan Problem List 1. GI bleed Plan -Patient with history of recurrent rectal bleeding -H&H improved status post transfusion -H&H ..3. -No active bleeding at this time -Dr. Jackson recommends discharge. He will follow the patient on outpatient basis. Patient will return on January 30, 2017 for colonoscopy and repair of rectal prolapse. Patient has been instructed to follow-up with Dr. Jackson for any further bleeding post discharge. 2. Anemia due to blood loss, acute Plan -See above -H&H -Outpatient follow-up per Dr. Jackson. 3. DM (diabetes mellitus) Plan -Patient with mild elevation of blood sugar. -Blood glucose normalized this a.m. -Outpatient follow-up with PCP 4. HTN (hypertension) Plan -Blood pressure mild elevation -Low-salt diet -Outpatient follow-up -Consider antihypertensive therapy for persistent blood pressure elevation 5. Hypothyroid Plan -Patient listed as having hypothyroidism -TSH normal -Patient on no thyroid replacement medications at home -Outpatient follow-up with PCP Current status: Fair, improved Anticipated discharge date: Anticipated discharge 1-2 days Anticipated discharge placement: Home Patient care time: Time in chart review, patient interview, physical exam, CPOE, and care documentation: 25 mins Visit to patient today: 1 Complexity of care: Moderate DVT prophylaxis: SCD The patient's case was discussed at length with Dr. Maurice Jackson. Does not feel colonoscopy indicated at this time and patient can be safely discharged to home with outpatient follow-up by him. Patient is a patient of Dr. Jackson. Hospital staff requested to admit the patient for Dr. Jackson in consultation by him during his hospital stay. Please see Dr. Jackson's consultation and recommendations on discharge with outpatient follow-up and re-admission on 01/30/17 E&M Codes Rounding: Inpt-Moderate/05262 Discharge: Inpt >30 min spent/26434
--- NOTE | 2017-01-27 13:16 | Provider's Discharge Care Plan ---
Problem, Goal, Plan Problem List 1. GI bleed Goals: Improve disease control, Prevent disease progress Instructions: Follow up as directed, Follow up with Dr. Jackson per his recommendations on 01/30/2017. Call Dr. Jackson if for significant rectal bleeding.
[2017-01-27] MEDS ORDERED: MIRALAX EQUIVAL17 GM PO (13:17)
[2017-01-27] MEDS ORDERED: GABAPENTIN300 MG PO (13:17)
[2017-01-27] MEDS ORDERED: OXAYDO5 MG PO (13:17)
--- NOTE | 2017-01-27 13:25 | Discharge Summary ---
Discharge Summary Report Admit Date 01/26/17 Discharge Date 01/27/17 Admission Diagnosis 1. LGI Bleed 2. Anemia Discharge Diagnosis 1. LGI Bleed 2. Anemia Brief History The patient is a 61-year-old white male with a significant past medical history of rectal bleeding, diabetes mellitus, hypertension, hypothyroidism, pancreatic/ hepatic neoplasm presented to [facility] emergency department secondary to complaints of rectal bleeding. [facility] ER evaluation was consistent with rectal bleeding and anemia. Secondary to the above, the patient was admitted by Darius Navarro M.D. with surgical consultation by Maurice Jackson M.D. for further evaluation and treatment For other history present illness, past medical history, family history, social history, review of systems, and admission physical examination please see the patient's history and physical examination and ER visit note in the patient's medical record. Hospital Course The following problems and their management were noted during the patient's hospitalization: 1. LGI Bleed The patient was admitted with history of progressive anemia with rectal bleeding. This is chronic and ongoing over the past several weeks. The patient has been seen in consultation by Dr. Maurice Jackson on an outpatient basis prior to hospitalization. Secondary to ongoing bleeding and severe anemia Dr. Jackson requested the patient be hospitalized on the hospitalist service with surgical consultation. The patient underwent transfusion of 4 units of packed RBCs with H&H as noted below. Symptoms are much improved. No significant bleeding at this time. Dr. Jackson has recommended the patient be discharged with readmission on January 30, 2017 for colonoscopy and repair of rectal prolapse. The patient will follow-up with Dr. Jackson this week for any ongoing significant bleeding. Dr. Jackson feels patient can be discharged safely with outpatient follow-up. Please see his consultation note which is pending at the time of this dictation. 2. Anemia See above. Follow-up as above. Lab/Imaging Laboratory Tests 01/27 01/27 0745 0500 Chemistry Plasma Sodium (136 - 145 mmol/L) 143 Plasma Potassium (3.5 - 5.1 mmol/L) 4.1 Plasma Chloride (98 - 107 mmol/L) 108 CO2 (Enzymatic) (21 - 32 mmol/L) 25 BUN (7 - 18 mg/dL) 13 Creatinine (0.6 - 1.3 mg/dL) 0.9 Est GFR ( Amer) (mL/min) >60 Est GFR (Non-Af Amer) (mL/min) >60 Glucose (70 - 110 mg/dL) 89 Plasma Calcium (8.5 - 10.1 mg/dL) 8.4 TSH 3rd Generation (0.30 - 3.74 uIU/mL) 2.215 Cancelled Hematology WBC (4.5 - 11.5 K/uL) 10.5 RBC (4.50 - 5.90 M/uL) 3.59 Hgb (13.5 - 17.5 gm/dL) 10.4 Hct (41.0 - 53.0 %) 31.3 MCV (80 - 100 fL) 87 MCH (26 - 34 pg) 29 RDW (11.6 - 14.8 %) 18.3 Neut % (Auto) (50 - 75 %) 62.4 Lymph % (Auto) (25 - 40 %) 11.8 [place] % (Auto) (3 - 14 %) 19.9 Eos % (Auto) (0 - 4 %) 5.9 Baso % (Auto) (0 - 2 %) 0 Plt Count, EDTA (150 - 400 K/uL) 406 PUBS MCHC (31 - 37 g/dL) 33 01/26 1556 Chemistry Plasma Sodium (136 - 145 mmol/L) 139 Plasma Potassium (3.5 - 5.1 mmol/L) 4.1 Plasma Chloride (98 - 107 mmol/L) 107 CO2 (Enzymatic) (21 - 32 mmol/L) 24 BUN (7 - 18 mg/dL) 16 Creatinine (0.6 - 1.3 mg/dL) 1.0 Est GFR ( Amer) (mL/min) >60 Est GFR (Non-Af Amer) (mL/min) >60 Glucose (70 - 110 mg/dL) 164 Plasma Calcium (8.5 - 10.1 mg/dL) 8.1 Total Bilirubin (0.0 - 1.0 mg/dL) 0.6 AST (15 - 37 U/L) 35 ALT (12 - 78 U/L) 30 Alkaline Phosphatase (46 - 116 U/L) 235 Total Protein (6.4 - 8.2 g/dL) 5.4 Albumin (3.3 - 5.0 g/dL) 2.6 Coagulation INR (0.8 - 1.2) 1.2 APTT (24 - 34 SECONDS) 39 Hematology WBC (4.5 - 11.5 K/uL) 9.1 Corrected WBC (auto) (K/uL) 8.8 RBC (4.50 - 5.90 M/uL) 1.95 Hgb (13.5 - 17.5 gm/dL) 5.7 Hct (41.0 - 53.0 %) 17.0 MCV (80 - 100 fL) 87 MCH (26 - 34 pg) 29 RDW (11.6 - 14.8 %) 23.5 Neut % (Auto) (50 - 75 %) 51 Lymph % (Auto) (25 - 40 %) 14 [place] % (Auto) (3 - 14 %) 24 Eos % (Auto) (0 - 4 %) 8 Baso % (Auto) (0 - 2 %) 0 Band Neutrophils % (0 - 8 %) 3 Metamyelocytes % (0 - 1 %) 0 Myelocytes (0 - 1 %) 0 Nucleated RBCs (0 - 1) 3 Other Cell Type OCCASIONAL GIANT PLT Plt Count, EDTA (150 - 400 K/uL) 348 Poikilocytosis (manual 2+ Anisocytosis (manual) 2+ [place] Cells 2+ Schistocytes 2+ PUBS MCHC (31 - 37 g/dL) 34 Microbiology Date/Time Procedure - Status Source Growth 01/26 1900 MRSA Screen - RECD NOSE Discharge Instructions/Meds For other recommendations regarding discharge diet, activity, followup, and discharge medications please see the patient's discharge instructions. Discharge condition: Fair, improved Greater than 30 min. was spent in the patient's discharge preparation including discharge interview and physical examination, progress note, discharge instructions, and discharge summary The patient was interviewed and examined on the day of discharge. E&M Codes Discharge: Inpt <30 min spent/19011
[2017-01-27] MEDS ORDERED: MULTIPLE VITAMIN PO (13:52)
[2017-01-27] MEDS ORDERED: FERROUS SULFAT325 M1 PO (13:52)
--- NOTE | 2017-01-28 18:04 | ED MED RECONCILIATION SUMMARY ---
Patient: PEGGY GARZON Medication Reconciliation Report [facility] VisitID: [id number] [place] [address] 61y, M Registration Date/Time: 01/26/2017 Weight: 63.5 kg Height/Length: 66 in. BMI: 22.6 ALLERGIES: No Known Drug Allergy The patient's Home Medications are listed below: THE FOLLOWING MEDICATIONS NEED TO BE RECONCILED: Gabapentin Oral (300 mg), 3x a day OxyCODONE HCl Oral Stool Softener Oral The source(s) of the original Home Medication information: patient patient's spouse The following Medications were given to the patient in the Emergency Department: IV NS IV Fluids bolus 500 mL, then 999 mL/hr, administered: 01/26/2017 4:01:00 PM Morphine [IVP] IVP 4 mg, administered: 01/26/2017 4:09:00 PM PROTONIX [IVP] IVP 80 mg, administered: 01/26/2017 5:18:00 PM Fentanyl [IVP] IVP 75 mcg, administered: 01/26/2017 6:17:00 PM The following Medications were prescribed to the patient: None.
--- NOTE | 2017-01-28 18:04 | ED MAR SUMMARY ---
..... Medication Administration Record [facility] [address] [place] [address] Patient: PEGGY GARZON Visit ID: [id number] 61y, M Weight: 63.5 kg Height/Length: 66 in BMI: 22.6 ALLERGIES: No Known Drug Allergy Start 16:01 01/26/2017 Shiv Larose R.N. Medication Administered: IV NS (SALINE), Dose: IV Fluids, Rate: 999 mL/hr, Bolus: 500 mL, Dispensed: 1000 mL bag, Site: #1 right. Medication Ordered: IV NS : initial bolus 500 mL (1000 mL/hr), then none - for X1 (NOW). Given 16:01/26/2017 Shiv Larose R.N. Medication Administered: MORPHINE [IVP], Dose: 4 mg IVP, Site: #1 right. Medication Ordered: Morphine IV 4 mg (HIGH ALERT MEDICATION, NOW). Given 17:01/26/2017 Shiv Larose R.N. Medication Administered: PROTONIX [IVP] (PANTOPRAZOLE SODIUM), Dose: 80 mg IVP, Site: #1 right. Medication Ordered: Protonix IVP 80mg 80 mg (Mix in NS 20ml over 4min). Given 18:01/26/2017 Shiv Larose R.N. Medication Administered: FENTANYL [IVP], Dose: 75 mcg IVP, Site: #1 right. Medication Ordered: Fentanyl IV 75 mcg (HIGH ALERT MEDICATION, NOW).
--- NOTE | 2017-01-28 18:04 | ED MED RECONCILIATION SUMMARY ---
Patient: PEGGY GARZON Medication Reconciliation Report [facility] VisitID: [id number] [address] [place] [address] 61y, M Registration Date/Time: 01/26/2017 Weight: 63.5 kg Height/Length: 66 in. BMI: 22.6 ALLERGIES: No Known Drug Allergy The patient's Home Medications are listed below: THE FOLLOWING MEDICATIONS NEED TO BE RECONCILED: Gabapentin Oral (300 mg), 3x a day OxyCODONE HCl Oral Stool Softener Oral The source(s) of the original Home Medication information: patient patient's spouse The following Medications were given to the patient in the Emergency Department: IV NS IV Fluids bolus 500 mL, then 999 mL/hr, administered: 01/26/2017 4:01:00 PM Morphine [IVP] IVP 4 mg, administered: 01/26/2017 4:09:00 PM PROTONIX [IVP] IVP 80 mg, administered: 01/26/2017 5:18:00 PM Fentanyl [IVP] IVP 75 mcg, administered: 01/26/2017 6:17:00 PM The following Medications were prescribed to the patient: None.
--- NOTE | 2017-01-28 18:04 | ED DISCHARGE INSTRUCTIONS ---
Patient: PEGGY GARZON General Instructions [facility] VisitID: [id number] [address] [place] [address] 61y, M Registration Date/Time: 01/26/2017 Occult and major GI bleed (acute). Severe acute anemia associated with acute blood loss. (Electronically signed by Gibson Melendez Dr. 01/27/2017 10:08)
--- NOTE | 2017-01-28 18:04 | ED MAR SUMMARY ---
..... Medication Administration Record [facility] [address] [place] [address] Patient: PEGGY GARZON Visit ID: [id number] 61y, M Weight: 63.5 kg Height/Length: 66 in BMI: 22.6 ALLERGIES: No Known Drug Allergy Start 16:01 01/26/2017 Shiv Larose R.N. Medication Administered: IV NS (SALINE), Dose: IV Fluids, Rate: 999 mL/hr, Bolus: 500 mL, Dispensed: 1000 mL bag, Site: #1 right. Medication Ordered: IV NS : initial bolus 500 mL (1000 mL/hr), then none - for X1 (NOW). Given 16:01/26/2017 Shiv Larose R.N. Medication Administered: MORPHINE [IVP], Dose: 4 mg IVP, Site: #1 right. Medication Ordered: Morphine IV 4 mg (HIGH ALERT MEDICATION, NOW). Given 17:01/26/2017 Shiv Larose R.N. Medication Administered: PROTONIX [IVP] (PANTOPRAZOLE SODIUM), Dose: 80 mg IVP, Site: #1 right. Medication Ordered: Protonix IVP 80mg 80 mg (Mix in NS 20ml over 4min). Given 18:01/26/2017 Shiv Larose R.N. Medication Administered: FENTANYL [IVP], Dose: 75 mcg IVP, Site: #1 right. Medication Ordered: Fentanyl IV 75 mcg (HIGH ALERT MEDICATION, NOW).
--- NOTE | 2017-01-28 18:04 | ED DISCHARGE INSTRUCTIONS ---
Patient: PEGGY GARZON General Instructions [facility] VisitID: [id number] [address] [place] [address] 61y, M Registration Date/Time: 01/26/2017 Occult and major GI bleed (acute). Severe acute anemia associated with acute blood loss. (Electronically signed by Gibson Melendez Dr. 01/27/2017 10:08)
[2017-01-29] MEDS ORDERED: HUMALOG100 MG/ML SC (11:02)
== END 2017-01-27 14:30 | disposition home or self-care (01) | DRG 812 ==
LOC: ED SRH 14:21 → TRANS SRH 17:24 → CC SRH 19:10
PROVIDERS: ADMIT Student in an Organized Health Care Education/Training Program
PROC: 30233N1 Transfusion of Nonautologous Red Blood Cells into Peripheral Vein, Percutaneous Approach (ICD-10-PCS; principal; 2017-01-26)
PROC: 30233N1 Transfusion of Nonautologous Red Blood Cells into Peripheral Vein, Percutaneous Approach (ICD-10-PCS; 2017-01-26)
PROC: 30233N1 Transfusion of Nonautologous Red Blood Cells into Peripheral Vein, Percutaneous Approach (ICD-10-PCS; 2017-01-27)
DX: D62 Acute posthemorrhagic anemia (principal); R19.5 Other fecal abnormalities; C78.7 Secondary malignant neoplasm of liver and intrahepatic bile duct; Z85.07 Personal history of malignant neoplasm of pancreas; E11.9 Type 2 diabetes mellitus without complications; I10 Essential (primary) hypertension; E03.9 Hypothyroidism, unspecified; K62.3 Rectal prolapse; K64.8 Other hemorrhoids; K64.4 Residual hemorrhoidal skin tags; F17.210 Nicotine dependence, cigarettes, uncomplicated; Z85.819 Personal history of malignant neoplasm of unspecified site of lip, oral cavity, and pharynx; Z90.81 Acquired absence of spleen; Z98.890 Other specified postprocedural states
CPT/HCPCS: 83498; 85241; 90001; 90047; 90100; 90155; 91004; 91544; 91643; 91672; 92132; 93140; 94001; 94060; 95059

== ENCOUNTER 2017-01-30 09:02 | Day surgery (SDC) | payer BC, OTHER ==
[~2017-01-30] VITALS: Ht 167.6 cm; Wt 66.5 kg
[~2017-01-30 09:02] MED LIST: FERROUS SULFAT325 M1 PO; GABAPENTIN300 MG PO; HUMALOG100 MG/ML SC; MIRALAX EQUIVAL17 GM PO; MULTIPLE VITAMIN PO; OXAYDO5 MG PO
--- NOTE | 2017-01-30 12:47 | Provider's Discharge Care Plan ---
Problem, Goal, Plan Problem List 1. Pancreas cancer 2. GI bleed
--- NOTE | 2017-01-30 12:47 | Provider's Discharge Care Plan ---
Problem, Goal, Plan Problem List 1. Pancreas cancer 2. GI bleed
[2017-01-30 15:52] VITALS: BP 158/73
== END 2017-01-30 15:40 | disposition home or self-care (01) ==
LOC: OR SRH 09:02 → SCU SRH 09:02 → OR SRH 11:00
PROVIDERS: Surgery
PROC: 0DS Gastrointestinal System, Reposition (ICD-10-PCS; principal; 2017-01-30 11:00)
PROC: 0DJD8ZZ Inspection of Lower Intestinal Tract, Via Natural or Artificial Opening Endoscopic (ICD-10-PCS; principal; 2017-01-30 11:00)
DX: K64.3 Fourth degree hemorrhoids (principal); C78.7 Secondary malignant neoplasm of liver and intrahepatic bile duct; Z85.07 Personal history of malignant neoplasm of pancreas; Z72.0 Tobacco use
CPT/HCPCS: 29229; 29240; 50002; 60001; 70002; 80102; 80212; 80866; 83120; 83526; 84038

== ENCOUNTER 2017-02-16 14:26 | Emergency (ER) | payer BC, OTHER ==
--- NOTE | 2017-02-16 16:23 | DIAGNOSTIC IMAGING REPORT ---
PROCEDURE: ABDOMEN/PELVIS WITH CONTRAST CLINICAL INDICATION: DIARRHEA TECHNIQUE: 125 ml of Isovue 300 were injected intravenously and axial images were obtained of the abdomen and pelvis with sagittal and coronal reformations. COMPARISON: 01/26/2017, 03/24/2016 FINDINGS: ABDOMEN: Trace right pleural effusion and minor right base atelectasis. Normal sized heart. No hiatal hernia. Surgical changes of distal pancreatectomy and splenectomy. Moderate intra-abdominal ascites, similar compared to the prior study. Small amount of biliary air present. Surgically absent gallbladder. Multiple surgical clips in the region of the pancreatic head. Poor definition of structures in the aiden hepatis region, similar to the prior study. Multiple ill-defined lesions in the left lobe of the liver have increased in size and extent. Tiny hypodensities throughout the liver are too small to accurately characterize. There is fairly extensive wall thickening of multiple loops of small bowel. Mild mucosal hyperemia is seen in many loops. No evidence of pneumatosis or obstruction. The colon is decompressed and there is diffuse mural edema and thickening. There may be inflammatory changes along the right colon. The kidneys, adrenal glands, retroperitoneal vessels, mild periaortic adenopathy, and ureters are stable. PELVIS: Pelvic small bowel loops are fluid-filled and also demonstrate diffuse wall thickening. Large amount of pelvic ascites. Low rectal anastomosis. Coarse prostatic calcifications. Normal urinary bladder. No inguinal hernias. No pelvic adenopathy. Normal appendix. No suspicious osseous lesions. IMPRESSION: 1. Findings suggest enteritis, possibly treatment related, infectious, ascites related, much less likely an ischemic or inflammatory. 2. Diffuse colonic decompression with questionable pericolonic inflammation surrounding the ascending colon. 3. Metastatic disease in the left lobe of the liver is worse compared to the prior study. 4. Diffuse intra-abdominal ascites, presumed malignant. 5. Distal pancreatectomy, splenectomy, hepaticojejunostomy, small bowel anastomoses are seen. 6. Findings discussed with Penny Paulino in the emergency room. All CT scans at this facility use dose modulation, iterative reconstruction, and/or weight-based dosing when appropriate to reduce radiation dose to as low as reasonably achievable.
--- NOTE | 2017-02-16 16:56 | ED CLINICAL REPORT ---
Clinical Report - Physicians/Mid Levels [facility] [address] [place] [address] 02/16/2017 14:26 Patient: PEGGY GARZON Time Seen: 1435; upon arrival, initial patient contact, initial documentation, patient care assumed. Arrived- By private vehicle. Historian- patient and spouse. HISTORY OF PRESENT ILLNESS Chief Complaint: ABDOMINAL PAIN. This started about 2 days ago and is still present. It was abrupt in onset and has been constant. At its maximum, severity described as moderate. When seen in the E.D., severity described as moderate. Modifying factors. Not worsened by anything. Not relieved by anything. It is described as "pain" and diffuse. No nausea, loss of appetite or vomiting. He has had diarrhea (x4 episodes). This has occurred several times. It has been watery. No bloody, mucous containing or blood-tinged diarrhea. No recent travel. Similar symptoms previously: Chronically, milder. Recent medical care: The patient was seen recently in a clinic and hospitalized. ( sent from walk in clinic for eval, labs done, 1LNS given admitted here on 01/26 for GI bleed fluid drained about a 1 wk ago next appt with oncology Wed). REVIEW OF SYSTEMS No constipation, black stools, hematemesis, difficulty with urination or pain with urination. No urinary frequency, fever, chest pain or difficulty breathing. All systems otherwise negative, except as recorded above. PAST HISTORY See nurses notes. PROBLEMS: Anemia. GI Bleeding. Chest Pain. Abdominal Pain. Liver Cancer. --14:35 Mikki Jeter R.N. ADDITIONAL SURGERIES: Chemo Port placed R anterior chest wall. Hernia Repair. Pancreatic Cancer removed. Shoulder Repair. Splenectomy. Wipple. --14:35 Mikki Jeter R.N. SOCIAL HISTORY Light tobacco smoker. No alcohol use or drug use. No recent travel. Is a local resident. FAMILY HISTORY Negative. ADDITIONAL NOTES The nursing notes have been reviewed with agreement regarding the chief complaint, HPI, ROS, PMH and patient medications and allergies. PHYSICAL EXAM Vital Signs: 02/16/2017 14:33 HR: 68. RR: 18. O2 saturation: 95%. Temp: 98.5 F. Have been reviewed as abnormal and appear to be correct. Blood pressure: 202 / 88 sitting -- hypertensive. Heart rate normal. Respiratory rate normal. Temperature normal. Oxygen saturation normal. Appearance: Alert. Oriented X3. No acute distress. Eyes: Pupils equal, round and reactive to light. Eyes normal inspection. Neck: Normal inspection. Neck supple. CVS: Normal heart rate and rhythm. Heart sounds normal. Pulses normal. Respiratory: No respiratory distress. Breath sounds normal. Chest nontender. Abdomen: Soft. Mild tenderness diffusely. Bowel sounds normal. No organomegaly. No mass. Distention (ascites present). No tenderness, tympany to percussion or dullness to percussion. Tenderness present. No rebound tenderness, mass present or guarding. The bowel sounds are not abnormal. Back: Normal inspection. Skin: Skin warm and dry. Slight pallor. Abnormal skin color. No rash. Normal skin turgor. Extremities: Extremities exhibit normal ROM. No lower extremity edema. Neuro: Oriented X 3. No motor deficit. No sensory deficit. LABS, X-RAYS, AND EKG Abdominal CT: . IMPRESSION: 1. Findings suggest enteritis, possibly treatment related, infectious, ascites related, much less likely an ischemic or inflammatory. 2. Diffuse colonic decompression with questionable pericolonic inflammation surrounding the ascending colon. 3. Metastatic disease in the left lobe of the liver is worse compared to the prior study. 4. Diffuse intra-abdominal ascites, presumed malignant. 5. Distal pancreatectomy, splenectomy, hepaticojejunostomy, small bowel anastomoses are seen. 6. Findings discussed with Penny Paulino in the emergency room. All CT scans at this facility use dose modulation, iterative reconstruction, and/or weight-based dosing when appropriate to reduce radiation dose to as low as reasonably achievable. Electronically Final signed by:Bruna Landin MD 02/16/2017 4:23:08 PM. The study was interpreted by the radiologist and discussed with the radiologist. Interpretation time: 16:20. PROGRESS AND PROCEDURES Course of Care: pt has chart from walk in clinic with him, chart reviewed, Na 133, CO2 19, BP elevated 15:17 02/16/17. pt has johanny for large quantity of narcs and #9 er visits, see report for details, last rx 01/29 oxycodone 10mg #100. 02/16/2017 15:32 BP: 194/75. HR: 67. RR: 18. O2 saturation: 96%. Temp: 98.1 F. Pain level now: 02/03. Vital Signs: have been reviewed as abnormal and appear to be correct. Hypertensive. Heart rate normal. Respiratory rate normal. Temperature normal. Oxygen saturation normal. Patient and spouse counseled in person regarding the patient's stable condition, test results and diagnosis. 1944. Differential Diagnosis: I considered gastritis, gastroenteritis, peptic ulcer disease, gastroesophageal reflux disease, diverticulitis, colon cancer, ulcerative colitis, Crohn's disease, small bowel obstruction, obstipation, ascites and viral syndrome as a possible cause of abdominal pain in this patient. This is a partial list of diagnoses considered. Above considerations are based on history, physical exam, reassessment, laboratory data and other information. Differential diagnosis was discussed with patient. Disposition: Discharged home in good and unchanged condition (16:56). Condition: good and stable. CLINICAL IMPRESSION Acute noninfectious gastroenteritis. Ascites, secondary to malignancy. Cancer of the liver. Currently on chemotherapy. Uncontrolled hypertension. INSTRUCTIONS Warnings: Further evaluation is necessary in order to conduct further tests (tumor has appeared to have gotten larger, as discussed). It is very important to follow up with a physician. GENERAL WARNINGS: Return or contact your physician immediately if your condition worsens or changes unexpectedly, if not improving as expected, or if other problems arise. SPECIFICALLY, return if you develop pain in the abdomen or pelvis, fever, the inability to keep fluids down, blood in vomitus, blood in diarrhea, fainting or lightheadedness. Prescription Medications: Flagyl 500 mg: Take 1 tablet orally every 12 hours for 7 days. No refill. Substitution is permissible. Follow-up: Follow up with an oncologist Friday as scheduled even if well. Reason for referral: or sooner if possible or warranted, call the office tomorrow morning. Summary of care provided to patient and family. Screening today revealed the patient's blood pressure to be in the hypertensive range. The patient should follow up with a primary care provider for blood pressure management. Understanding of the discharge instructions verbalized by patient. (Electronically signed by Penny Paulino A.R.N.P. 02/16/2017 18:43)
--- NOTE | 2017-02-16 16:56 | ED ORDER SUMMARY ---
..... Patient: PEGGY GARZON OrderSheet [facility] VisitID: [id number] [address] [place] [address] 61y, M Registration Date/Time: 02/16/2017 ORDER SHEET Weight: 65.3 kg (stated) Allergies: No Known Drug Allergy GENERAL ORDERS: CT Abd/Pel w Cont (No) (normal) Urgent (14:44 02/16/2017 HBivens A.R.N.P.) (14:46 PWeiler ER Tech1) MEDICATION ORDERS: IV FLUIDS: IV NS : initial bolus none -, then 100 mL/hr (NOW) (14:44 02/16/2017 HBivens A.R.N.P.) (Ack 14:51 LAbe R.N.) (14:58 LAbe R.N.) Flagyl IV 500 mg/100mL (NOW) (16:56 02/16/2017 HBivens A.R.N.P.) (Ack 17:01 LAbe R.N.) (17:11 LAbe R.N.) ORDER SHEET NOTES: [Electronically signed by Mikki Jeter R.N. (18:26 02/16/2017)] [Electronically signed by Penny PaulinoR.N.P. (18:43 02/16/2017)] [Electronically locked/signed by Mikki Jeter R.N. (18:26 02/16/2017)]
--- NOTE | 2017-02-16 16:56 | ED ORDER SUMMARY ---
..... Patient: PEGGY GARZON OrderSheet [facility] VisitID: [id number] [address] [place] [address] 61y, M Registration Date/Time: 02/16/2017 ORDER SHEET Weight: 65.3 kg (stated) Allergies: No Known Drug Allergy GENERAL ORDERS: CT Abd/Pel w Cont (No) (normal) Urgent (14:44 02/16/2017 HBivens A.R.N.P.) (14:46 PWeiler ER Tech1) MEDICATION ORDERS: IV FLUIDS: IV NS : initial bolus none -, then 100 mL/hr (NOW) (14:44 02/16/2017 HBivens A.R.N.P.) (Ack 14:51 LAbe R.N.) (14:58 LAbe R.N.) Flagyl IV 500 mg/100mL (NOW) (16:56 02/16/2017 HBivens A.R.N.P.) (Ack 17:01 LAbe R.N.) (17:11 LAbe R.N.) ORDER SHEET NOTES: [Electronically signed by Mikki Jeter R.N. (18:26 02/16/2017)] [Electronically signed by Penny PaulinoR.N.P. (18:43 02/16/2017)] [Electronically locked/signed by Mikki Jeter R.N. (18:26 02/16/2017)]
--- NOTE | 2017-02-16 16:56 | ED NURSING NOTES ---
Clinical Report - Nurses [facility] [address] [place] [address] 02/16/2017 14:26 Patient: PEGGY GARZON TRIAGE Triage time 14:33. Acuity: LEVEL 3. Chief Complaint: ABDOMINAL PAIN and DIARRHEA. Alert. No acute distress. SEPSIS SCREEN: Sepsis Screen. Negative (no infection suspected/documented). ANUJA COMA SCORE: [place] Coma Scale: 15- eyes open spontaneously (4); best verbal response- oriented x 4 (5); best motor response- obeys commands (6). --14:41 Mikki Jeter R.N. 14:33 02/16/17. HR: 68. RR: 18. O2 saturation: 95%. Temp: 98.5 F. Pain level now 7/10. --14:41 Mikki Jeter R.N. 14:42 02/16/17. BP: 199/81. --14:42 Mikki Jeter R.N. Weight: 65.3 kg stated. Height/Length: 66 inches Per Patient. BMI: 23.2. --14:32 Mikki Jeter R.N. Medications Gabapentin Oral (Capsule 300 mg), 3x a day. OxyCODONE HCl Oral. Stool Softener Oral. --14:34 Mikki Jeter R.N. HumaLOG Subcutaneous. --15:00 Mikki Jeter R.N. Allergies No Known Drug Allergy. --14:34 Mikki Jeter R.N. Medication/allergy information source: the patient. --14:41 Mikki Jeter R.N. History Arrived by private vehicle. Historian: patient. Accompanied by friend. Primary physician (Dr. Tariq). Onset. (about 2 days). ( Sent by [facility], central abd pain x 2 days, diarrhea x 2 days, last BM this morning, no blood noted.). He has had diarrhea. SOCIAL HX: Heavy tobacco smoker- less than 1 pack per day. No alcohol use or drug use. No recent travel. No infectious disease exposure. No known contact with a sick individual. ABUSE ASSESSMENT: No report of abuse. SELF HARM ASSESSMENT: A self harm assessment was performed. The patient answered "no" to the question "Do you have thoughts of harming or killing yourself?" and "Are you here because you tried to hurt yourself?". FALL RISK ASSESSMENT: Fall risk assessment completed. No fall risk identified. NUTRITIONAL RISK ASSESSMENT: The nutritional risk assessment revealed no deficiencies. FUNCTIONAL ASSESSMENT: Functional assessment: no impairments noted. LEARNING NEEDS ASSESSMENT: The learning needs assessment revealed no barriers. SKIN INTEGRITY ASSESSMENT: Skin integrity risk assessment completed. No skin integrity risk identified. --14:41 Mikki Jeter R.N. PROBLEMS: Anemia. GI Bleeding. Chest Pain. Abdominal Pain. Liver Cancer. --14:35 Mikki Jeter R.N. ADDITIONAL SURGERIES: Chemo Port placed R anterior chest wall. Hernia Repair. Pancreatic Cancer removed. Shoulder Repair. Splenectomy. Wipple. --14:35 Mikki Jeter R.N. Interventions ID band on patient. To treatment room. --14:41 Mikki Jeter R.N. PHYSICAL ASSESSMENT Ambulatory to room. GENERAL / NEURO / PSYCH: Alert. Oriented X 4. Appears in no acute distress. RESPIRATORY: Respirations not labored. GI / : The patient has diarrhea. Abdominal distention. Abdomen soft. Abdominal tenderness. SKIN: Skin is warm and dry. --14:44 Mikki Jeter R.N. NURSING PROGRESS NOTES Patient gowned. Head of bed elevated. Reassurance given. Two patient identifiers checked. Call light placed in reach. Side rails up x 2. Bed placed in lowest position. Brakes of bed on. ED physician notified. --14:45 Mikki Jeter R.N. 14:48 02/16/2017 Site #1 started prior to arrival in doctor's office via IV in the left antecubital space with an 20g angiocath. --14:58 Mikki Jeter R.N. 14:58 02/16/2017 Started bag #1 1000 mL IV Fluids IV NS (Saline); at 100 mL/hr over 10 hour(s) via site #1 via IV pump. Allergies verified and confirmed 5 rights. IV patency established. IV site checked: no pain, redness, or swelling. IV flushed thoroughly pre- and post-medication administration. --14:58 Mikki Jteer R.N. 15:32 02/16/17. BP: 194/75. HR: 67. RR: 18. O2 saturation: 96%. Temp: 98.1 F. Pain level now: 02/03. --15:44 Mikki Jeter R.N. The patient reports no complaints and he is calm and resting quietly. ( provided with warm blankets). Patient returned from [place] by stretcher with tech. ([id number]). --15:44 Mikki Jeter R.N. 17:10 02/16/2017 Started 500 mg of Flagyl (MetroNIDAZOLE in NaCl) IVPB in bag #1 100 mL; at 100 mL/hr over 1 hour(s) via site #1 via IV pump. Allergies verified and confirmed 5 rights. IV patency established. IV site checked: no pain, redness, or swelling. IV flushed thoroughly pre- and post-medication administration. --17:11 Mikki Jeter R.N. 18:10 02/16/2017 Flagyl IVPB Discontinued: bag #1 infused upon discharge. Total amount infused: 100 mL. IV patency established. IV site checked: no pain, redness, or swelling. IV flushed thoroughly. --18:10 Mikki Jeter R.N. 18:10 02/16/2017 IV Fluids IV NS Discontinued: bag #1 infused upon discharge. Total amount infused: 500 mL. IV patency established. IV site checked: no pain, redness, or swelling. IV flushed thoroughly. --18:10 Mikki Jeter R.N. 18:11 02/16/2017 Site #1 removed upon discharge. Catheter intact. Pressure dressing applied. --18:11 Mikki Jeter R.N. DISPOSITION / DISCHARGE Departure time: 18:21. Condition at departure: improved and stable. No learning barriers present. Discharge instructions provided and reviewed with the patient. Patient verbalized understanding. Written instructions provided in [place]. The patient was discharged home and accompanied by spouse. He left the Emergency Department ambulatory and via private vehicle. Spouse driving. ( Ms Paulino notified about continued high blood pressure. No further orders received. Patient Ok to discharge. Patient advised to f/u with PCP about blood pressure managment.). --18:21 Mikki Jeter R.N. 18:11 02/16/17. BP: 177/104. HR: 65. RR: 18. O2 saturation: 94%. Temp: 98.5 F. Pain level now 02/03. --18:21 Mikki Jeter R.N. Locked/Released at 02/16/2017 18:26 by Mikki Jeter R.N.
--- NOTE | 2017-02-16 16:56 | ED NURSING NOTES ---
Clinical Report - Nurses Merged With [facility] [address] [place] [address] 02/16/2017 14:26 Patient: PEGGY GARZON TRIAGE Triage time 14:33. Acuity: LEVEL 3. Chief Complaint: ABDOMINAL PAIN and DIARRHEA. Alert. No acute distress. SEPSIS SCREEN: Sepsis Screen. Negative (no infection suspected/documented). ANJUA COMA SCORE: [place] Coma Scale: 15- eyes open spontaneously (4); best verbal response- oriented x 4 (5); best motor response- obeys commands (6). --14:41 Mikki Jeter R.N. 14:33 02/16/17. HR: 68. RR: 18. O2 saturation: 95%. Temp: 98.5 F. Pain level now 7/10. --14:41 Mikki Jeter R.N. 14:42 02/16/17. BP: 199/81. --14:42 Mikki Jeter R.N. Weight: 65.3 kg stated. Height/Length: 66 inches Per Patient. BMI: 23.2. --14:32 Mikki Jeter R.N. Medications Gabapentin Oral (Capsule 300 mg), 3x a day. OxyCODONE HCl Oral. Stool Softener Oral. --14:34 Mikki Jeter R.N. HumaLOG Subcutaneous. --15:00 Mikki Jeter R.N. Allergies No Known Drug Allergy. --14:34 Mikki Jeter R.N. Medication/allergy information source: the patient. --14:41 Mikki Jeter R.N. History Arrived by private vehicle. Historian: patient. Accompanied by friend. Primary physician (Dr. Tariq). Onset. (about 2 days). ( Sent by [facility], central abd pain x 2 days, diarrhea x 2 days, last BM this morning, no blood noted.). He has had diarrhea. SOCIAL HX: Heavy tobacco smoker- less than 1 pack per day. No alcohol use or drug use. No recent travel. No infectious disease exposure. No known contact with a sick individual. ABUSE ASSESSMENT: No report of abuse. SELF HARM ASSESSMENT: A self harm assessment was performed. The patient answered "no" to the question "Do you have thoughts of harming or killing yourself?" and "Are you here because you tried to hurt yourself?". FALL RISK ASSESSMENT: Fall risk assessment completed. No fall risk identified. NUTRITIONAL RISK ASSESSMENT: The nutritional risk assessment revealed no deficiencies. FUNCTIONAL ASSESSMENT: Functional assessment: no impairments noted. LEARNING NEEDS ASSESSMENT: The learning needs assessment revealed no barriers. SKIN INTEGRITY ASSESSMENT: Skin integrity risk assessment completed. No skin integrity risk identified. --14:41 Mikki Jeter R.N. PROBLEMS: Anemia. GI Bleeding. Chest Pain. Abdominal Pain. Liver Cancer. --14:35 Mikki Jeter R.N. ADDITIONAL SURGERIES: Chemo Port placed R anterior chest wall. Hernia Repair. Pancreatic Cancer removed. Shoulder Repair. Splenectomy. Wipple. --14:35 Mikki Jeter R.N. Interventions ID band on patient. To treatment room. --14:41 Mikki Jeter R.N. PHYSICAL ASSESSMENT Ambulatory to room. GENERAL / NEURO / PSYCH: Alert. Oriented X 4. Appears in no acute distress. RESPIRATORY: Respirations not labored. GI / : The patient has diarrhea. Abdominal distention. Abdomen soft. Abdominal tenderness. SKIN: Skin is warm and dry. --14:44 Mikki Jeter R.N. NURSING PROGRESS NOTES Patient gowned. Head of bed elevated. Reassurance given. Two patient identifiers checked. Call light placed in reach. Side rails up x 2. Bed placed in lowest position. Brakes of bed on. ED physician notified. --14:45 Mikki Jeter R.N. 14:48 02/16/2017 Site #1 started prior to arrival in doctor's office via IV in the left antecubital space with an 20g angiocath. --14:58 Mikki Jeter R.N. 14:58 02/16/2017 Started bag #1 1000 mL IV Fluids IV NS (Saline); at 100 mL/hr over 10 hour(s) via site #1 via IV pump. Allergies verified and confirmed 5 rights. IV patency established. IV site checked: no pain, redness, or swelling. IV flushed thoroughly pre- and post-medication administration. --14:58 Mikki Jeter R.N. 15:32 02/16/17. BP: 194/75. HR: 67. RR: 18. O2 saturation: 96%. Temp: 98.1 F. Pain level now: 02/03. --15:44 Mikki Jeter R.N. The patient reports no complaints and he is calm and resting quietly. ( provided with warm blankets). Patient returned from [place] by stretcher with tech. ([id number]). --15:44 Mikki Jeter R.N. 17:10 02/16/2017 Started 500 mg of Flagyl (MetroNIDAZOLE in NaCl) IVPB in bag #1 100 mL; at 100 mL/hr over 1 hour(s) via site #1 via IV pump. Allergies verified and confirmed 5 rights. IV patency established. IV site checked: no pain, redness, or swelling. IV flushed thoroughly pre- and post-medication administration. --17:11 Mikki Jeter R.N. 18:10 02/16/2017 Flagyl IVPB Discontinued: bag #1 infused upon discharge. Total amount infused: 100 mL. IV patency established. IV site checked: no pain, redness, or swelling. IV flushed thoroughly. --18:10 Mikki Jeter R.N. 18:10 02/16/2017 IV Fluids IV NS Discontinued: bag #1 infused upon discharge. Total amount infused: 500 mL. IV patency established. IV site checked: no pain, redness, or swelling. IV flushed thoroughly. --18:10 Mikki Jeter R.N. 18:11 02/16/2017 Site #1 removed upon discharge. Catheter intact. Pressure dressing applied. --18:11 Mikki Jeter R.N. DISPOSITION / DISCHARGE Departure time: 18:21. Condition at departure: improved and stable. No learning barriers present. Discharge instructions provided and reviewed with the patient. Patient verbalized understanding. Written instructions provided in Swazi. The patient was discharged home and accompanied by spouse. He left the Emergency Department ambulatory and via private vehicle. Spouse driving. ( Ms Paulino notified about continued high blood pressure. No further orders received. Patient Ok to discharge. Patient advised to f/u with PCP about blood pressure managment.). --18:21 Mikki Jeter R.N. 18:11 02/16/17. BP: 177/104. HR: 65. RR: 18. O2 saturation: 94%. Temp: 98.5 F. Pain level now 02/03. --18:21 Mikki Jeter R.N. Locked/Released at 02/16/2017 18:26 by Mikki Jeter R.N.
--- NOTE | 2017-02-16 18:44 | ED MED RECONCILIATION SUMMARY ---
Patient: PEGGY GARZON Medication Reconciliation Report [facility] VisitID: [id number] [address] [place] [address] 61y, M Registration Date/Time: 02/16/2017 Weight: 65.3 kg Height/Length: 66 in. BMI: 23.2 ALLERGIES: No Known Drug Allergy The patient's Home Medications are listed below: THE FOLLOWING MEDICATIONS NEED TO BE RECONCILED: Gabapentin Oral (300 mg), 3x a day HumaLOG Subcutaneous OxyCODONE HCl Oral Stool Softener Oral The source(s) of the original Home Medication information: patient The following Medications were given to the patient in the Emergency Department: IV NS IV Fluids bolus 0, then 100 mL/hr, administered: 02/16/2017 2:58:00 PM Flagyl [IVPB] IVPB bolus 0, then 500 mg 100 mL/hr, administered: 02/16/2017 5:10:00 PM The following Medications were prescribed to the patient: Flagyl 500 mg: Take 1 tablet orally every 12 hours for 7 days. No refill. Substitution is permissible. -- Penny Paulino A.R.N.P.
--- NOTE | 2017-02-16 18:44 | ED MAR SUMMARY ---
..... Medication Administration Record [facility] [address] [place] [address] Patient: PEGGY GARZON Visit ID: [id number] 61y, M Weight: 65.3 kg Height/Length: 66 in BMI: 23.2 ALLERGIES: No Known Drug Allergy Start 14:58 02/16/2017 Mikki Jeter R.N., Stop 18:10 02/16/2017 Mikki Jeter R.N. Medication Administered: IV NS (SALINE), Dose: IV Fluids over 10 hour(s), Rate: 100 mL/hr, Dispensed: 1000 mL bag, Site: #1 left AC. Medication Ordered: IV NS : initial bolus none -, then 100 mL/hr (NOW). Start 17:10 02/16/2017 Mikki Jeter R.N., Stop 18:10 02/16/2017 Mikki Jeter R.N. Medication Administered: FLAGYL [IVPB] (METRONIDAZOLE IN NACL), Dose: 500 mg IVPB over 1 hour(s), Rate: 100 mL/hr, Dispensed: 100 mL bag, Site: #1 left AC. Medication Ordered: Flagyl IV 500 mg/100mL (NOW).
--- NOTE | 2017-02-16 18:44 | ED MAR SUMMARY ---
..... Medication Administration Record [address] [place] [address] Patient: PEGGY GARZON Visit ID: [id number] 61y, M Weight: 65.3 kg Height/Length: 66 in BMI: 23.2 ALLERGIES: No Known Drug Allergy Start 14:58 02/16/2017 Mikki Jeter R.N., Stop 18:10 02/16/2017 Mikki Jeter R.N. Medication Administered: IV NS (SALINE), Dose: IV Fluids over 10 hour(s), Rate: 100 mL/hr, Dispensed: 1000 mL bag, Site: #1 left AC. Medication Ordered: IV NS : initial bolus none -, then 100 mL/hr (NOW). Start 17:10 02/16/2017 Mikki Jeter R.N., Stop 18:10 02/16/2017 Mikki Jeter R.N. Medication Administered: FLAGYL [IVPB] (METRONIDAZOLE IN NACL), Dose: 500 mg IVPB over 1 hour(s), Rate: 100 mL/hr, Dispensed: 100 mL bag, Site: #1 left AC. Medication Ordered: Flagyl IV 500 mg/100mL (NOW).
--- NOTE | 2017-02-16 18:44 | ED DISCHARGE INSTRUCTIONS ---
Patient: PEGGY GARZON General Instructions [facility] VisitID: [id number] [place] [address] 61y, M Registration Date/Time: 02/16/2017 Acute noninfectious gastroenteritis. Ascites, secondary to malignancy. Cancer of the liver. Currently on chemotherapy. Uncontrolled hypertension. INSTRUCTIONS Warnings: Further evaluation is necessary in order to conduct further tests (tumor has appeared to have gotten larger, as discussed). It is very important to follow up with a physician. GENERAL WARNINGS: Return or contact your physician immediately if your condition worsens or changes unexpectedly, if not improving as expected, or if other problems arise. SPECIFICALLY, return if you develop pain in the abdomen or pelvis, fever, the inability to keep fluids down, blood in vomitus, blood in diarrhea, fainting or lightheadedness. Prescription Medications: Flagyl 500 mg: Take 1 tablet orally every 12 hours for 7 days. No refill. Substitution is permissible. Follow-up: Follow up with an oncologist Friday as scheduled even if well. Reason for referral: or sooner if possible or warranted, call the office tomorrow morning. Summary of care provided to patient and family. Screening today revealed the patient's blood pressure to be in the hypertensive range. The patient should follow up with a primary care provider for blood pressure management. Understanding of the discharge instructions verbalized by patient. ADDITIONAL INFORMATION Gastroenteritis [Non-Infectious, 6 Yr-Adult] Your symptoms today are coming from the intestinal tract. This may occur as a result of food sensitivity, inflammation of the GI tract, medicines, stress or other causes not related to infection. This may last from 1-3 days. Antibiotics are not effective, but simple home treatment will be helpful. Home Care: If symptoms are severe, rest at home for the next 24 hours. You may use acetaminophen (Tylenol) or ibuprofen (Motrin, Advil) to control fever, unless another medicine was prescribed. [NOTE: If you have chronic liver or kidney disease or ever had a stomach ulcer or GI bleeding, talk with your doctor before using these medicines.] (Aspirin should never be used in anyone under 18 years of age who is ill with a fever. It may cause severe liver damage.) Avoid tobacco and alcohol use, which may make your symptoms worse. If medicines for diarrhea or vomiting were prescribed, take only as directed. Once vomiting stops, then follow these guidelines: During The First 12-24 Hours follow the diet below: gingerale, mineral water (plain or flavored), decaffeinated tea and coffee. During The Next 24 Hours you may add the following to the above: DURING THE NEXT 24 HOURS Gradually resume a normal diet, as you feel better and your symptoms lessen. Follow Up with your doctor as advised if you are not improving over the next 2-3 days. If a stool (diarrhea) sample was taken, you may call in 2 days (or as directed) for the results. Get Prompt Medical Attention if any of the following occur: Increasing abdominal pain or constant lower right abdominal pain Continued vomiting (unable to keep liquids down) Frequent diarrhea (more than 5 times a day) Blood in vomit or stool (black or red color) Reduced oral intake Dark urine, reduced urine output Weakness, dizziness, fainting Drowsiness, confusion, stiff neck or seizure Fever of 100.4F (38C) or higher, or as directed by your healthcare provider New rash Ascites Ascites is a collection of fluid in the abdominal cavity. The fluid leaks from the blood vessels that go to the intestines and liver. The most common cause for ascites is cirrhosis (scarring) of the liver. This is most often caused by alcoholism but other conditions such as chronic hepatitis (type B or C) can also cause this. Conditions not related to the liver can cause ascites such as congestive heart failure, kidney failure, pancreatitis, and cancer involving the abdominal organs. As the amount of fluid increases, it causes abdominal swelling and discomfort. There may also be loss of appetite and shortness of breath. In severe cases, the feet, ankles and legs also swell. Initial treatment is to restrict your salt intake and use medicines that promote urination (diuretics, also called water pills). In severe cases the fluid may need to be drained from the abdomen with a needle (called symptoms can be better controlled with medicines. If your liver damage is from alcohol, quitting will slow the progress of the disease and may prevent further complications. If your liver damage is from Hepatitis B or C, treatments may be given to fight the virus. If cirrhosis progresses and becomes life-threatening, a liver transplant may be considered. Home Care: If liver disease is the cause of your ascites, avoid medicines that can worsen liver damage such as acetaminophen (Tylenol). Your doctor will explain if any of the medicines you now take need to be changed. Talk to your doctor before taking mineral and vitamin supplements. Vitamin A, iron and copper can worsen liver damage. Stop all alcohol use. If you are alcoholic, seek professional help. Consider joining Alcoholics Anonymous for ongoing support. If you use IV drugs, seek help to stop. The viruses that cause this kind of hepatitis are passed by blood or sexual contact with an infected person. Never share needles or other equipment. Follow Up with your doctor or as advised by our staff. Learn more about your disease and the availability of support groups for others with the same condition. [place] [employer] 308-927-7337 www.liverfoundation.org [employer]. 366.621.2145 www.hepfi.org Alcoholics Anonymous offers support through a self-help fellowship. There are no dues or fees. See the Yellow Pages and call for time and place of meetings. www.aa.org [employer] offers support to families of alcohol users. 755.758.2892 www.al-anon.org National [place] on Alcoholism and Drug Dependence 723-661-5941 www.ncadd.org Get Prompt Medical Attention if any of the following occur: Sudden weight gain with increased size of your abdomen or leg swelling Increasing jaundice (yellow color of skin or eyes) Excess bleeding from cuts or injuries Blood in your vomit or stool (black or red color) Difficulty breathing Increasing abdominal pain Fever of 100.4F (38C) or higher, or as directed by your healthcare provider High Blood Pressure -- New (Begin Tx) Your blood pressure was high enough today to start treatment with medicines. The cause of hypertension is unknown in most cases, but can be controlled with lifestyle changes and/or medicines. Hypertension may cause headache, dizziness, blurred vision, rushing sound in your ears, chest pain or shortness of breath. Sometimes it causes no symptoms at all. However, untreated hypertension increases the risk of heart attack, also known as acute myocardial infarction, or AMI, and stroke. It is a serious health risk and should not be ignored. A normal blood pressure is 120/80 or less. The first (top) number is the "systolic" pressure. The second (bottom) number is the "diastolic" pressure. Hypertension exists when either the top number is 140 or higher, OR the bottom number is 90 or higher on repeated measurements. Home Care: All patients with hypertension should do the following to lower their pressure. If you are on medicines, then these methods may reduce or eliminate your need for medicine in the future. Begin a weight loss program if you are overweight. Reduce your salt intake. Avoid high salt foods (olives, pickles, smoked meats, salted potato chips, etc.). Do not add salt to your food at the table. Use only small amounts of salt when cooking. Begin an exercise program. Discuss with your doctor what type of exercise program would be best for you. It doesn't have to be difficult. Even brisk walking for 20 minutes three times a week is a good form of exercise. Avoid medicines which contain heart stimulants. This includes many cold and sinus decongestant pills and sprays as well as diet pills. Check the warnings about hypertension on the label. Stimulants such as amphetamine or cocaine could be lethal for someone with hypertension. Never take these. Limit your caffeine intake or switch to caffeine-free products. Stop smoking. If you are a long-time smoker, this can be hard. Enroll in a stop-smoking program to improve your chance of success. Talk to your physician about ways to improve your chance of success. Learning how to handle stress better is an important part of any program to lower blood pressure. Learn about relaxation methods such as meditation, yoga, or biofeedback. If medicines were prescribed, take them exactly as directed. Missing doses may cause your blood pressure to get out of control. Consider buying an automatic blood pressure machine (available at many pharmacies). Use this to monitor your blood pressure and report to your doctor. Follow Up: Because a new blood pressure medicine was started today, it is important that you have your blood pressure rechecked to be sure you are responding well and that there are no serious side effects. Unless told otherwise, follow-up with your doctor or this facility within the next THREE DAYS. Get Prompt Medical Attention if any of the following occur: Chest pain or shortness of breath Severe headache Throbbing or rushing sound in the ears Nosebleed Sudden severe abdominal pain Extreme drowsiness, confusion or fainting Dizziness or vertigo (dizziness with spinning sensation) Weakness of an arm or leg or one side of the face Difficulty with speech or vision Metronidazole Oral tablet What is this medicine? METRONIDAZOLE (me troe NI da zole) is an antiinfective. It is used to treat certain kinds of bacterial and protozoal infections. It will not work for colds, flu, or other viral infections. How should I use this medicine? Take this medicine by mouth with a full glass of water. Follow the directions on the prescription label. Take your medicine at regular intervals. Do not take your medicine more often than directed. Take all of your medicine as directed even if you think you are better. Do not skip doses or stop your medicine early. Talk to your social media senior associate regarding the use of this medicine in children. Special care may be needed. What side effects may I notice from receiving this medicine? Side effects that you should report to your doctor or health respiratory care faculty as soon as possible: allergic reactions like skin rash or hives, swelling of the face, lips, or tongue confusion, clumsiness difficulty speaking discolored or sore mouth dizziness fever, infection numbness, tingling, pain or weakness in the hands or feet trouble passing urine or change in the amount of urine redness, blistering, peeling or loosening of the skin, including inside the mouth seizures unusually weak or tired vaginal irritation, dryness, or discharge Side effects that usually do not require medical attention (report to your doctor or health respiratory care faculty if they continue or are bothersome): diarrhea headache irritability metallic taste nausea stomach pain or cramps trouble sleeping What may interact with this medicine? Do not take this medicine with any of the following medications: alcohol or any product that contains alcohol amprenavir oral solution cisapride disulfiram dofetilide dronedarone paclitaxel injection pimozide ritonavir oral solution sertraline oral solution sulfamethoxazole-trimethoprim injection thioridazine ziprasidone This medicine may also interact with the following medications: cimetidine lithium other medicines that prolong the QT interval (cause an abnormal heart rhythm) phenobarbital phenytoin warfarin What if I miss a dose? If you miss a dose, take it as soon as you can. If it is almost time for your next dose, take only that dose. Do not take double or extra doses. Where should I keep my medicine? Keep out of the reach of children. Store at room temperature below 25 degrees C (77 degrees F). Protect from light. Keep container tightly closed. Throw away any unused medicine after the expiration date. What should I tell my health care provider before I take this medicine? They need to know if you have any of these conditions: anemia or other blood disorders disease of the nervous system fungal or yeast infection if you drink alcohol containing drinks liver disease seizures an unusual or allergic reaction to metronidazole, or other medicines, foods, dyes, or preservatives or trying to get breast-feeding What should I watch for while using this medicine? Tell your doctor or health respiratory care faculty if your symptoms do not improve or if they get worse. You may get drowsy or dizzy. Do not drive, use machinery, or do anything that needs mental alertness until you know how this medicine affects you. Do not stand or sit up quickly, especially if you are an older patient. This reduces the risk of dizzy or fainting spells. Avoid alcoholic drinks while you are taking this medicine and for three days afterward. Alcohol may make you feel dizzy, sick, or flushed. If you are being treated for a sexually transmitted disease, avoid sexual contact until you have finished your treatment. Your sexual partner may also need treatment. You have been given the following additional information: Gastroenteritis, Non-Infectious (Child) (Adult) Ascites Hypertension, New (Begin Treatment) Metronidazole Oral tablet (Electronically signed by Penny Paulino A.R.N.P. 02/16/2017 18:43)
--- NOTE | 2017-02-16 18:44 | ED MED RECONCILIATION SUMMARY ---
Patient: PEGGY GARZON Medication Reconciliation Report [facility] VisitID: [id number] [address] [place] [address] 61y, M Registration Date/Time: 02/16/2017 Weight: 65.3 kg Height/Length: 66 in. BMI: 23.2 ALLERGIES: No Known Drug Allergy The patient's Home Medications are listed below: THE FOLLOWING MEDICATIONS NEED TO BE RECONCILED: Gabapentin Oral (300 mg), 3x a day HumaLOG Subcutaneous OxyCODONE HCl Oral Stool Softener Oral The source(s) of the original Home Medication information: patient The following Medications were given to the patient in the Emergency Department: IV NS IV Fluids bolus 0, then 100 mL/hr, administered: 02/16/2017 2:58:00 PM Flagyl [IVPB] IVPB bolus 0, then 500 mg 100 mL/hr, administered: 02/16/2017 5:10:00 PM The following Medications were prescribed to the patient: Flagyl 500 mg: Take 1 tablet orally every 12 hours for 7 days. No refill. Substitution is permissible. -- Penny Paulino A.R.N.P.
== END 2017-02-16 18:21 | disposition home or self-care (01) ==
LOC: ED SRH 14:26
DX: K52.9 Noninfective gastroenteritis and colitis, unspecified (principal); C22.9 Malignant neoplasm of liver, not specified as primary or secondary; R18.0 Malignant ascites; I10 Essential (primary) hypertension; Z72.0 Tobacco use